=== PATIENT | female | born 1980 | race Caucasian/White ===

== ENCOUNTER 2022-09-12 15:35 | Inpatient (IN) | payer OTHER ==
[2022-09-12 17:43] VITALS: BMI 17.8
[2022-09-12] MEDS ORDERED: POLYETHYLENE GLYCOL (HEALTHYLAX) 3350 17 GM PACKET PO PRN (20:05)
[2022-09-12] MEDS ORDERED: MAG HYDROX/AL HYDROX/SIMETH 30 ML UNIT-DOSE CUP PO PRN (20:05)
[2022-09-12] MEDS ORDERED: guaiFENesin 200 MG/10 ML 10 ML UNIT-DOSE CUPS PO PRN (20:05)
[2022-09-12] MEDS ORDERED: BENZOCAINE/MENTHOL (CHLORASEPTIC ) LOZENGE MM PRN (20:05)
[2022-09-12] MEDS ORDERED: MAGNESIUM HYDROX 2400MG/30ML ORAL SUSPENSION 30 ML CUP PO PRN (20:05)
[2022-09-12] MEDS ORDERED: P-EPHED 60MG/TRIPROLIDI 2.5MG TABLET PO PRN (20:05)
[2022-09-12] MEDS ORDERED: LOPERAMIDE HCL 2 MG CAPSULE PO PRN (20:05)
[2022-09-12] MEDS ORDERED: ACETAMINOPHEN 325 MG TABLET (FP) PO PRN (20:05)
[2022-09-12] MEDS ORDERED: NICOTINE 10 MG CARTRIDGE (INHALER) IH PRN (20:05)
[2022-09-12] MEDS ORDERED: IBUPROFEN 400 MG TABLET (FP) PO PRN (20:05)
[2022-09-12] MEDS ORDERED: hydrOXYzine PAMOATE 25 MG CAPSULE (FP) PO ONE (20:37)
[2022-09-12] MEDS: hydrOXYzine PAMOATE 25 MG CAPSULE (FP) PO PRN (20:38)
[2022-09-12] MEDS: NICOTINE 7 MG/24 HOURS TOPICAL PATCH TD SCH (20:41)
[2022-09-12] MEDS ORDERED: NICOTINE 7 MG/24 HOURS TOPICAL PATCH TD ONE (20:42)
[2022-09-12] MEDS ORDERED: THIAMINE HCL 100 MG TABLET (FP) PO SCH (22:00)
[2022-09-13] MEDS: PRENATAL VITAMINS W/ FOLIC ACID TABLET (FP) PO SCH ×2 (01:49→10:00)
[2022-09-13] MEDS: MELATONIN 5 MG TABLETS PO SCH ×3 (01:49→22:22)
[2022-09-13] MEDS ORDERED: hydrOXYzine PAMOATE 25 MG CAPSULE (FP) PO ONE (06:28)
[2022-09-13] MEDS: hydrOXYzine PAMOATE 25 MG CAPSULE (FP) PO PRN ×2 (07:03→19:45)
[2022-09-13] MEDS: NICOTINE 7 MG/24 HOURS TOPICAL PATCH TD SCH (10:00)
[2022-09-13 11:47] LABS: HEMATOCRIT 39.7 % (32.4-45.2); HEMOGLOBIN 13.5 GM/dL (10.7-15.3); MCH 28.4 pg (25.7-33.7); MCHC 33.9 g/dl (32.0-36.0); MEAN CELL VOLUME 83.9 fl (80-96); MEAN PLT VOLUME 8.1 fl (7.5-11.1); PLATELET COUNT 241 10^3/uL (134-434); RBC 4.73 M/mm3 (3.60-5.2); RDW 13.5 % (11.6-15.6); WHITE BLOOD COUNT 5.5 K/mm3 (4.0-10.0)
[2022-09-13 11:57] LABS: ALBUMIN 3.6 g/dl (3.4-5.0); CALCIUM 9.4 mg/dL (8.5-10.1)
[2022-09-13 11:58] LABS: BLOOD UREA NITROGEN 7.3 mg/dL (7-18)
[2022-09-13 12:00] LABS: CREATININE 0.5 mg/dL (0.55-1.3)
[2022-09-13 12:02] LABS: BILIRUBIN,TOTAL 0.3 mg/dL (0.2-1); TOT PROT 6.6 g/dl (6.4-8.2)
[2022-09-13] MEDS ORDERED: MAG HYDROX/AL HYDROX/SIMETH 30 ML UNIT-DOSE CUP PO PRN (13:16)
[2022-09-13] MEDS ORDERED: BISMUTH SUBSALICYLATE 524 MG/30 ML PO PRN (13:16)
[2022-09-13] MEDS ORDERED: DICYCLOMINE HCL 10 MG CAPSULE PO PRN (13:16)
[2022-09-13] MEDS ORDERED: ACETAMINOPHEN 325 MG TABLET (FP) PO PRN ×2 (13:16)
[2022-09-13] MEDS ORDERED: BENZOCAINE/MENTHOL (CHLORASEPTIC ) LOZENGE MM PRN (13:16)
[2022-09-13] MEDS ORDERED: LOPERAMIDE HCL 2 MG CAPSULE PO PRN (13:16)
[2022-09-13] MEDS ORDERED: ONDANSETRON *ODT* 4 MG TABLET SL PRN (13:16)
[2022-09-13] MEDS ORDERED: NALOXONE HCL (KLOXXADO) 8 MG SPRAY NS PRN (13:16)
[2022-09-13] MEDS ORDERED: NICOTINE 10 MG CARTRIDGE (INHALER) IH PRN (13:16)
[2022-09-13] MEDS ORDERED: POLYETHYLENE GLYCOL (HEALTHYLAX) 3350 17 GM PACKET PO PRN (13:16)
[2022-09-13] MEDS ORDERED: MAGNESIUM HYDROX 2400MG/30ML ORAL SUSPENSION 30 ML CUP PO PRN (13:16)
[2022-09-13 15:38] LABS: SYPHILIS W/ RPR CONF NON-REACTIVE (NONREACTIVE)
[2022-09-13] MEDS: METHOCARBAMOL 500 MG TABLET PO PRN (18:12)
[2022-09-13] MEDS: THIAMINE HCL 100 MG TABLET (FP) PO SCH (22:22)
[2022-09-13] MEDS: IBUPROFEN 400 MG TABLET (FP) PO PRN (22:23)
[2022-09-14] MEDS: IBUPROFEN 600 MG TABLET (FP) PO PRN ×2 (03:49→16:48)
[2022-09-14] MEDS: METHOCARBAMOL 500 MG TABLET PO PRN ×3 (03:49→19:16)
[2022-09-14] MEDS: hydrOXYzine PAMOATE 25 MG CAPSULE (FP) PO PRN (03:49)
[2022-09-14] MEDS: NICOTINE POLACRILEX 2 MG GUM BUC PRN (05:48)
[2022-09-14] MEDS: methaDONE HCL 10 MG TABLET PO SCH (08:51)
[2022-09-14] MEDS: PRENATAL VITAMINS W/ FOLIC ACID TABLET (FP) PO SCH (10:13)
[2022-09-14] MEDS: NICOTINE 7 MG/24 HOURS TOPICAL PATCH TD SCH (10:13)
[2022-09-14 11:47] LABS: EPI CELLS 15 /uL (0-25.1); HYALINE CASTS 4 /uL (0-3.1); PH,URINE 8.5 (5.0-8.0); URINE APPEARANCE CLEAR; URINE BACTERIA 8 /uL (0-1359); URINE BILIRUBIN NEGATIVE (NEGATIVE); URINE COLOR DK YELLOW; URINE GLUCOSE (UA) NEGATIVE (NEGATIVE); URINE KETONE TRACE (NEGATIVE); URINE LEUK ESTERASE TRACE (NEGATIVE); URINE NITRITE NEGATIVE (NEGATIVE); URINE PROTEIN 1+ (NEGATIVE); URINE RBC 34 /uL (0-23.9); URINE WBC 21 /uL (0-25.8)
[2022-09-14] MEDS ORDERED: hydrOXYzine PAMOATE 25 MG CAPSULE (FP) PO ONE (13:30)
[2022-09-14] MEDS: THIAMINE HCL 100 MG TABLET (FP) PO SCH (22:08)
[2022-09-14] MEDS: MELATONIN 5 MG TABLETS PO SCH (22:08)
[2022-09-15] MEDS: METHOCARBAMOL 500 MG TABLET PO PRN ×3 (03:14→16:59)
[2022-09-15] MEDS ORDERED: TRIMETHOBENZAMIDE HCL 200MG/2ML INJ IM ONE (04:00)
[2022-09-15] MEDS: methaDONE HCL 10 MG TABLET PO SCH (05:09)
[2022-09-15] MEDS: IBUPROFEN 600 MG TABLET (FP) PO PRN (05:57)
[2022-09-15] MEDS ORDERED: hydrOXYzine PAMOATE 25 MG CAPSULE (FP) PO ONE ×3 (08:48→21:57)
[2022-09-15] MEDS: PRENATAL VITAMINS W/ FOLIC ACID TABLET (FP) PO SCH (09:44)
[2022-09-15] MEDS: NICOTINE 7 MG/24 HOURS TOPICAL PATCH TD SCH (09:45)
[2022-09-15] MEDS: IBUPROFEN 400 MG TABLET (FP) PO PRN (16:59)
[2022-09-15] MEDS: MELATONIN 5 MG TABLETS PO SCH (23:12)
[2022-09-15] MEDS: THIAMINE HCL 100 MG TABLET (FP) PO SCH (23:12)
[2022-09-16] MEDS: METHOCARBAMOL 500 MG TABLET PO PRN ×2 (03:33→12:50)
[2022-09-16] MEDS: IBUPROFEN 600 MG TABLET (FP) PO PRN (03:33)
[2022-09-16] MEDS ORDERED: hydrOXYzine PAMOATE 25 MG CAPSULE (FP) PO ONE (04:27)
[2022-09-16] MEDS: methaDONE HCL 10 MG TABLET PO SCH (05:17)
[2022-09-16] MEDS ORDERED: hydrOXYzine PAMOATE 25 MG CAPSULE (FP) PO PRN ×2 (09:05→09:10)
[2022-09-16] MEDS: NICOTINE 7 MG/24 HOURS TOPICAL PATCH TD SCH (09:43)
[2022-09-16] MEDS: PRENATAL VITAMINS W/ FOLIC ACID TABLET (FP) PO SCH (09:43)
[2022-09-16] MEDS ORDERED: ESCITALOPRAM OXALATE 10 MG TABLET PO SCH (10:00)
[2022-09-16 12:48] VITALS: BP 104/61; PULSE 78; RESP 14; TEMP 97.5
[2022-09-16] MEDS: NICOTINE POLACRILEX 2 MG GUM BUC PRN (14:29)
[2022-09-16] MEDS ORDERED: SUVOREXANT 10 MG TABLET PO PRN (22:00)
== END 2022-09-16 17:49 | disposition other institution (70) | DRG 773 ==
LOC: YASAS 15:35 → Y3N 09-13 12:28
PROVIDERS: ADMIT Allergy & Immunology; ATTEND Surgery
PROC: HZ2ZZZZ Detoxification Services for Substance Abuse Treatment (ICD-10-PCS; principal; 2022-09-13)
DX: F11.23 Opioid dependence with withdrawal (principal); F14.20 Cocaine dependence, uncomplicated; F17.210 Nicotine dependence, cigarettes, uncomplicated; F19.24 Other psychoactive substance dependence with psychoactive substance-induced mood disorder; F43.22 Adjustment disorder with anxiety; F32.A Depression, unspecified; F41.9 Anxiety disorder, unspecified; Z28.310 Unvaccinated for COVID-19; Z56.0 Unemployment, unspecified; Z59.00 Homelessness unspecified
CPT/HCPCS: 36415; 80053; 81003; 85027; 86780; 86803; 93005; 93010; C9803-CS; U0003; U0005

== ENCOUNTER 2022-09-16 18:15 | Inpatient (IN) | payer OTHER ==
[2022-09-16] MEDS ORDERED: BENZOCAINE/MENTHOL (CHLORASEPTIC ) LOZENGE MM PRN (20:59)
[2022-09-16] MEDS ORDERED: ACETAMINOPHEN 325 MG TABLET (FP) PO PRN (20:59)
[2022-09-16] MEDS ORDERED: MAG HYDROX/AL HYDROX/SIMETH 30 ML UNIT-DOSE CUP PO PRN (20:59)
[2022-09-16] MEDS ORDERED: guaiFENesin 200 MG/10 ML 10 ML UNIT-DOSE CUPS PO PRN (20:59)
[2022-09-16] MEDS ORDERED: LOPERAMIDE HCL 2 MG CAPSULE PO PRN (20:59)
[2022-09-16] MEDS: THIAMINE HCL 100 MG TABLET (FP) PO SCH (21:27)
[2022-09-16] MEDS ORDERED: MELATONIN 5 MG TABLETS PO SCH (22:00)
[2022-09-17] MEDS ORDERED: hydrOXYzine PAMOATE 25 MG CAPSULE (FP) PO PRN ×2 (01:23→09:18)
[2022-09-17] MEDS: methaDONE HCL 10 MG TABLET PO SCH (06:36)
[2022-09-17] MEDS: IBUPROFEN 400 MG TABLET (FP) PO PRN (06:43)
[2022-09-17] MEDS: PRENATAL VITAMINS W/ FOLIC ACID TABLET (FP) PO SCH (10:19)
[2022-09-17] MEDS: hydrOXYzine PAMOATE 25 MG CAPSULE (FP) PO SCH ×2 (10:19→17:38)
[2022-09-17] MEDS: NICOTINE 14 MG/24 HOURS TOPICAL PATCH TD SCH (10:20)
[2022-09-17] MEDS: ESCITALOPRAM OXALATE 10 MG TABLET PO SCH (10:21)
[2022-09-17] MEDS: NICOTINE 10 MG CARTRIDGE (INHALER) IH PRN (10:29)
[2022-09-17] MEDS: METHOCARBAMOL 500 MG TABLET PO PRN ×2 (10:29→17:42)
[2022-09-17] MEDS: THIAMINE HCL 100 MG TABLET (FP) PO SCH (22:03)
[2022-09-17] MEDS: SUVOREXANT 10 MG TABLET PO PRN (22:04)
[2022-09-18] MEDS: hydrOXYzine PAMOATE 25 MG CAPSULE (FP) PO SCH (01:52)
[2022-09-18] MEDS: methaDONE HCL 10 MG TABLET PO SCH (06:15)
[2022-09-18] MEDS: PRENATAL VITAMINS W/ FOLIC ACID TABLET (FP) PO SCH (10:41)
[2022-09-18] MEDS: ESCITALOPRAM OXALATE 10 MG TABLET PO SCH (10:42)
[2022-09-18] MEDS: hydrOXYzine PAMOATE 25 MG CAPSULE (FP) PO PRN ×3 (10:42→21:46)
[2022-09-18] MEDS: NICOTINE 14 MG/24 HOURS TOPICAL PATCH TD SCH (10:42)
[2022-09-18] MEDS: METHOCARBAMOL 500 MG TABLET PO PRN ×2 (10:43→18:14)
[2022-09-18] MEDS: NICOTINE 10 MG CARTRIDGE (INHALER) IH PRN (10:45)
[2022-09-18] MEDS: THIAMINE HCL 100 MG TABLET (FP) PO SCH (21:46)
[2022-09-18] MEDS: SUVOREXANT 10 MG TABLET PO PRN (21:48)
[2022-09-19] MEDS: METHOCARBAMOL 500 MG TABLET PO PRN ×3 (06:51→21:33)
[2022-09-19] MEDS: methaDONE HCL 10 MG TABLET PO SCH (06:51)
[2022-09-19] MEDS: ESCITALOPRAM OXALATE 10 MG TABLET PO SCH (10:20)
[2022-09-19] MEDS: PRENATAL VITAMINS W/ FOLIC ACID TABLET (FP) PO SCH (10:21)
[2022-09-19] MEDS: NICOTINE 14 MG/24 HOURS TOPICAL PATCH TD SCH (10:21)
[2022-09-19] MEDS: hydrOXYzine PAMOATE 25 MG CAPSULE (FP) PO PRN ×3 (10:21→21:34)
[2022-09-19] MEDS: NICOTINE 10 MG CARTRIDGE (INHALER) IH PRN ×2 (10:22→16:33)
[2022-09-19] MEDS ORDERED: TUBERCULIN PPD 5 TU/0.1ML VIAL ID ONE (11:05)
[2022-09-19] MEDS: SODIUM CHLORIDE NASAL SPRAY 44 ML BOTTLE NS SCH ×2 (14:24→21:33)
[2022-09-19] MEDS: THIAMINE HCL 100 MG TABLET (FP) PO SCH (21:32)
[2022-09-19] MEDS: SUVOREXANT 10 MG TABLET PO PRN (21:33)
[2022-09-20] MEDS: SODIUM CHLORIDE NASAL SPRAY 44 ML BOTTLE NS SCH ×3 (06:57→21:48)
[2022-09-20] MEDS: methaDONE HCL 10 MG TABLET PO SCH (06:57)
[2022-09-20] MEDS: hydrOXYzine PAMOATE 25 MG CAPSULE (FP) PO PRN ×3 (06:59→21:37)
[2022-09-20] MEDS: METHOCARBAMOL 500 MG TABLET PO PRN ×2 (07:00→21:37)
[2022-09-20] MEDS: ESCITALOPRAM OXALATE 10 MG TABLET PO SCH (10:20)
[2022-09-20] MEDS: NICOTINE 14 MG/24 HOURS TOPICAL PATCH TD SCH (10:20)
[2022-09-20] MEDS: PRENATAL VITAMINS W/ FOLIC ACID TABLET (FP) PO SCH (10:21)
[2022-09-20] MEDS: IBUPROFEN 400 MG TABLET (FP) PO PRN (16:35)
[2022-09-20] MEDS: NICOTINE 10 MG CARTRIDGE (INHALER) IH PRN (19:32)
[2022-09-20] MEDS: NICOTINE POLACRILEX 2 MG GUM BUC PRN (20:10)
[2022-09-20] MEDS: THIAMINE HCL 100 MG TABLET (FP) PO SCH (21:37)
[2022-09-21] MEDS: P-EPHED 60MG/TRIPROLIDI 2.5MG TABLET PO PRN ×2 (06:45→21:46)
[2022-09-21] MEDS: methaDONE HCL 10 MG TABLET PO SCH (06:45)
[2022-09-21] MEDS: hydrOXYzine PAMOATE 25 MG CAPSULE (FP) PO PRN ×3 (06:45→19:40)
[2022-09-21] MEDS: SODIUM CHLORIDE NASAL SPRAY 44 ML BOTTLE NS SCH ×3 (07:23→21:43)
[2022-09-21] MEDS: ESCITALOPRAM OXALATE 10 MG TABLET PO SCH (10:38)
[2022-09-21] MEDS: PRENATAL VITAMINS W/ FOLIC ACID TABLET (FP) PO SCH (10:39)
[2022-09-21] MEDS: METHOCARBAMOL 500 MG TABLET PO PRN ×2 (10:41→21:44)
[2022-09-21] MEDS: NICOTINE 14 MG/24 HOURS TOPICAL PATCH TD SCH (10:41)
[2022-09-21] MEDS: NICOTINE 10 MG CARTRIDGE (INHALER) IH PRN ×2 (10:46→20:04)
[2022-09-21] MEDS: THIAMINE HCL 100 MG TABLET (FP) PO SCH (21:44)
[2022-09-22] MEDS: methaDONE HCL 10 MG TABLET PO SCH (06:35)
[2022-09-22] MEDS: SODIUM CHLORIDE NASAL SPRAY 44 ML BOTTLE NS SCH ×3 (06:35→21:41)
[2022-09-22] MEDS: hydrOXYzine PAMOATE 25 MG CAPSULE (FP) PO PRN ×3 (06:36→21:36)
[2022-09-22] MEDS: NICOTINE 10 MG CARTRIDGE (INHALER) IH PRN ×4 (06:38→21:37)
[2022-09-22] MEDS: ESCITALOPRAM OXALATE 10 MG TABLET PO SCH (10:15)
[2022-09-22] MEDS: METHOCARBAMOL 500 MG TABLET PO PRN ×2 (10:16→21:36)
[2022-09-22] MEDS: PRENATAL VITAMINS W/ FOLIC ACID TABLET (FP) PO SCH (10:16)
[2022-09-22] MEDS: NICOTINE 14 MG/24 HOURS TOPICAL PATCH TD SCH (10:16)
[2022-09-22] MEDS: THIAMINE HCL 100 MG TABLET (FP) PO SCH (21:36)
[2022-09-22] MEDS ORDERED: SUVOREXANT 10 MG TABLET PO PRN (22:00)
[2022-09-23] MEDS: SODIUM CHLORIDE NASAL SPRAY 44 ML BOTTLE NS SCH ×3 (07:09→21:37)
[2022-09-23] MEDS: methaDONE HCL 10 MG TABLET PO SCH (07:09)
[2022-09-23] MEDS: NICOTINE 10 MG CARTRIDGE (INHALER) IH PRN ×4 (09:03→21:36)
[2022-09-23] MEDS: ESCITALOPRAM OXALATE 10 MG TABLET PO SCH (10:14)
[2022-09-23] MEDS: NICOTINE 14 MG/24 HOURS TOPICAL PATCH TD SCH (10:15)
[2022-09-23] MEDS: PRENATAL VITAMINS W/ FOLIC ACID TABLET (FP) PO SCH (10:15)
[2022-09-23] MEDS: hydrOXYzine PAMOATE 25 MG CAPSULE (FP) PO PRN ×2 (10:16→18:22)
[2022-09-23] MEDS: METHOCARBAMOL 500 MG TABLET PO PRN (12:11)
[2022-09-23] MEDS: THIAMINE HCL 100 MG TABLET (FP) PO SCH (21:35)
[2022-09-23] MEDS: IBUPROFEN 400 MG TABLET (FP) PO PRN (21:47)
[2022-09-24] MEDS: NICOTINE 10 MG CARTRIDGE (INHALER) IH PRN ×5 (06:44→21:27)
[2022-09-24] MEDS: hydrOXYzine PAMOATE 25 MG CAPSULE (FP) PO PRN ×2 (06:45→17:18)
[2022-09-24] MEDS: methaDONE HCL 10 MG TABLET PO SCH (06:45)
[2022-09-24] MEDS: SODIUM CHLORIDE NASAL SPRAY 44 ML BOTTLE NS SCH ×2 (06:47→14:13)
[2022-09-24] MEDS: ESCITALOPRAM OXALATE 10 MG TABLET PO SCH (09:50)
[2022-09-24] MEDS: NICOTINE 14 MG/24 HOURS TOPICAL PATCH TD SCH (09:50)
[2022-09-24] MEDS: PRENATAL VITAMINS W/ FOLIC ACID TABLET (FP) PO SCH (09:50)
[2022-09-24] MEDS: METHOCARBAMOL 500 MG TABLET PO PRN ×2 (09:51→18:16)
[2022-09-25] MEDS: THIAMINE HCL 100 MG TABLET (FP) PO SCH ×2 (00:02→21:28)
[2022-09-25] MEDS: SODIUM CHLORIDE NASAL SPRAY 44 ML BOTTLE NS SCH ×2 (00:02→07:04)
[2022-09-25] MEDS: methaDONE HCL 10 MG TABLET PO SCH (07:04)
[2022-09-25] MEDS: NICOTINE 10 MG CARTRIDGE (INHALER) IH PRN ×2 (07:04→14:36)
[2022-09-25] MEDS: hydrOXYzine PAMOATE 25 MG CAPSULE (FP) PO PRN ×3 (07:04→21:28)
[2022-09-25] MEDS: ESCITALOPRAM OXALATE 10 MG TABLET PO SCH (10:09)
[2022-09-25] MEDS: PRENATAL VITAMINS W/ FOLIC ACID TABLET (FP) PO SCH (10:09)
[2022-09-25] MEDS: NICOTINE 14 MG/24 HOURS TOPICAL PATCH TD SCH (10:10)
[2022-09-25] MEDS: METHOCARBAMOL 500 MG TABLET PO PRN ×2 (10:11→21:28)
[2022-09-25] MEDS: MAGNESIUM HYDROX 2400MG/30ML ORAL SUSPENSION 30 ML CUP PO PRN (18:05)
[2022-09-25] MEDS: IBUPROFEN 400 MG TABLET (FP) PO PRN (20:02)
[2022-09-25] MEDS ORDERED: SUVOREXANT 10 MG TABLET PO PRN (22:00)
[2022-09-26] MEDS: methaDONE HCL 10 MG TABLET PO SCH (06:04)
[2022-09-26] MEDS: hydrOXYzine PAMOATE 25 MG CAPSULE (FP) PO PRN ×3 (06:05→21:33)
[2022-09-26] MEDS: P-EPHED 60MG/TRIPROLIDI 2.5MG TABLET PO PRN (06:06)
[2022-09-26] MEDS: PRENATAL VITAMINS W/ FOLIC ACID TABLET (FP) PO SCH (10:18)
[2022-09-26] MEDS: NICOTINE 14 MG/24 HOURS TOPICAL PATCH TD SCH (10:18)
[2022-09-26] MEDS: METHOCARBAMOL 500 MG TABLET PO PRN ×2 (10:18→21:33)
[2022-09-26] MEDS: NICOTINE 10 MG CARTRIDGE (INHALER) IH PRN ×2 (10:19→20:34)
[2022-09-26] MEDS: ESCITALOPRAM OXALATE 10 MG TABLET PO SCH (10:20)
[2022-09-26] MEDS: IBUPROFEN 400 MG TABLET (FP) PO PRN (13:38)
[2022-09-26] MEDS: MAGNESIUM HYDROX 2400MG/30ML ORAL SUSPENSION 30 ML CUP PO PRN (18:10)
[2022-09-26] MEDS: THIAMINE HCL 100 MG TABLET (FP) PO SCH (21:32)
[2022-09-27] MEDS: hydrOXYzine PAMOATE 25 MG CAPSULE (FP) PO PRN ×3 (06:33→21:20)
[2022-09-27] MEDS: methaDONE HCL 10 MG TABLET PO SCH (06:33)
[2022-09-27] MEDS: NICOTINE 10 MG CARTRIDGE (INHALER) IH PRN ×4 (06:36→20:48)
[2022-09-27] MEDS: ESCITALOPRAM OXALATE 10 MG TABLET PO SCH (09:43)
[2022-09-27] MEDS: PRENATAL VITAMINS W/ FOLIC ACID TABLET (FP) PO SCH (09:44)
[2022-09-27] MEDS: NICOTINE 14 MG/24 HOURS TOPICAL PATCH TD SCH (09:44)
[2022-09-27] MEDS: METHOCARBAMOL 500 MG TABLET PO PRN ×2 (09:45→16:31)
[2022-09-27] MEDS: IBUPROFEN 400 MG TABLET (FP) PO PRN ×2 (14:30→22:15)
[2022-09-27] MEDS: POLYETHYLENE GLYCOL (HEALTHYLAX) 3350 17 GM PACKET PO PRN (18:30)
[2022-09-27] MEDS: THIAMINE HCL 100 MG TABLET (FP) PO SCH (21:20)
[2022-09-28] MEDS: methaDONE HCL 10 MG TABLET PO SCH (06:40)
[2022-09-28] MEDS: METHOCARBAMOL 500 MG TABLET PO PRN ×2 (06:40→17:47)
[2022-09-28] MEDS: P-EPHED 60MG/TRIPROLIDI 2.5MG TABLET PO PRN (07:22)
[2022-09-28] MEDS: NICOTINE 14 MG/24 HOURS TOPICAL PATCH TD SCH (09:54)
[2022-09-28] MEDS: hydrOXYzine PAMOATE 25 MG CAPSULE (FP) PO PRN ×2 (09:54→17:47)
[2022-09-28] MEDS: ESCITALOPRAM OXALATE 10 MG TABLET PO SCH (09:54)
[2022-09-28] MEDS: PRENATAL VITAMINS W/ FOLIC ACID TABLET (FP) PO SCH (09:54)
[2022-09-28] MEDS: NICOTINE 10 MG CARTRIDGE (INHALER) IH PRN ×3 (09:55→19:46)
[2022-09-28] MEDS: IBUPROFEN 400 MG TABLET (FP) PO PRN (19:44)
[2022-09-28] MEDS ORDERED: SUVOREXANT 10 MG TABLET PO PRN (22:00)
[2022-09-28] MEDS: THIAMINE HCL 100 MG TABLET (FP) PO SCH (23:18)
[2022-09-29] MEDS: methaDONE HCL 10 MG TABLET PO SCH (06:31)
[2022-09-29] MEDS: PRENATAL VITAMINS W/ FOLIC ACID TABLET (FP) PO SCH (09:44)
[2022-09-29] MEDS: NICOTINE 14 MG/24 HOURS TOPICAL PATCH TD SCH (09:44)
[2022-09-29] MEDS: NICOTINE 10 MG CARTRIDGE (INHALER) IH PRN ×3 (09:45→20:04)
[2022-09-29] MEDS: METHOCARBAMOL 500 MG TABLET PO PRN ×2 (09:45→18:18)
[2022-09-29] MEDS: hydrOXYzine PAMOATE 25 MG CAPSULE (FP) PO PRN ×2 (14:18→21:40)
[2022-09-29] MEDS: IBUPROFEN 400 MG TABLET (FP) PO PRN (16:10)
[2022-09-29] MEDS: THIAMINE HCL 100 MG TABLET (FP) PO SCH (21:30)
[2022-09-29] MEDS: POLYETHYLENE GLYCOL (HEALTHYLAX) 3350 17 GM PACKET PO PRN (21:37)
[2022-09-30] MEDS: methaDONE HCL 10 MG TABLET PO SCH (06:16)
[2022-09-30] MEDS: hydrOXYzine PAMOATE 25 MG CAPSULE (FP) PO PRN ×3 (06:16→21:18)
[2022-09-30] MEDS: NICOTINE 10 MG CARTRIDGE (INHALER) IH PRN ×4 (06:17→21:28)
[2022-09-30] MEDS: PRENATAL VITAMINS W/ FOLIC ACID TABLET (FP) PO SCH (09:46)
[2022-09-30] MEDS: NICOTINE 14 MG/24 HOURS TOPICAL PATCH TD SCH (09:47)
[2022-09-30] MEDS: METHOCARBAMOL 500 MG TABLET PO PRN ×2 (09:48→16:37)
[2022-09-30] MEDS: BENZOCAINE 20 % GEL TUBE MM PRN (17:57)
[2022-09-30] MEDS: IBUPROFEN 400 MG TABLET (FP) PO PRN (20:13)
[2022-09-30] MEDS: THIAMINE HCL 100 MG TABLET (FP) PO SCH (21:18)
[2022-09-30] MEDS: POLYETHYLENE GLYCOL (HEALTHYLAX) 3350 17 GM PACKET PO PRN (21:21)
[2022-10-01] MEDS: hydrOXYzine PAMOATE 25 MG CAPSULE (FP) PO PRN ×3 (06:33→21:27)
[2022-10-01] MEDS: methaDONE HCL 10 MG TABLET PO SCH (06:33)
[2022-10-01] MEDS: PRENATAL VITAMINS W/ FOLIC ACID TABLET (FP) PO SCH (09:41)
[2022-10-01] MEDS: METHOCARBAMOL 500 MG TABLET PO PRN ×2 (09:42→18:58)
[2022-10-01] MEDS: NICOTINE 14 MG/24 HOURS TOPICAL PATCH TD SCH (09:42)
[2022-10-01] MEDS: NICOTINE 10 MG CARTRIDGE (INHALER) IH PRN ×3 (12:06→21:33)
[2022-10-01] MEDS: BENZOCAINE 20 % GEL TUBE MM PRN (21:26)
[2022-10-01] MEDS: THIAMINE HCL 100 MG TABLET (FP) PO SCH (21:27)
[2022-10-01] MEDS: IBUPROFEN 400 MG TABLET (FP) PO PRN (21:31)
[2022-10-02] MEDS: methaDONE HCL 10 MG TABLET PO SCH (06:37)
[2022-10-02] MEDS: hydrOXYzine PAMOATE 25 MG CAPSULE (FP) PO PRN ×2 (06:37→12:47)
[2022-10-02] MEDS: P-EPHED 60MG/TRIPROLIDI 2.5MG TABLET PO PRN (06:38)
[2022-10-02] MEDS: NICOTINE 10 MG CARTRIDGE (INHALER) IH PRN ×5 (08:48→22:16)
[2022-10-02] MEDS: NICOTINE 14 MG/24 HOURS TOPICAL PATCH TD SCH (09:42)
[2022-10-02] MEDS: PRENATAL VITAMINS W/ FOLIC ACID TABLET (FP) PO SCH (09:42)
[2022-10-02] MEDS: METHOCARBAMOL 500 MG TABLET PO PRN ×2 (09:44→22:17)
[2022-10-02] MEDS: BENZOCAINE 20 % GEL TUBE MM PRN (16:19)
[2022-10-02] MEDS: IBUPROFEN 400 MG TABLET (FP) PO PRN (16:57)
[2022-10-02] MEDS: THIAMINE HCL 100 MG TABLET (FP) PO SCH (22:19)
[2022-10-03] MEDS: IBUPROFEN 400 MG TABLET (FP) PO PRN ×2 (01:00→12:11)
[2022-10-03] MEDS: BENZOCAINE 20 % GEL TUBE MM PRN ×2 (01:01→22:35)
[2022-10-03] MEDS: NICOTINE 10 MG CARTRIDGE (INHALER) IH PRN ×6 (07:02→20:14)
[2022-10-03] MEDS: methaDONE HCL 10 MG TABLET PO SCH (07:03)
[2022-10-03] MEDS: PRENATAL VITAMINS W/ FOLIC ACID TABLET (FP) PO SCH (09:05)
[2022-10-03] MEDS: NICOTINE 14 MG/24 HOURS TOPICAL PATCH TD SCH (09:06)
[2022-10-03] MEDS: METHOCARBAMOL 500 MG TABLET PO PRN ×2 (10:07→21:24)
[2022-10-03] MEDS: hydrOXYzine PAMOATE 25 MG CAPSULE (FP) PO PRN ×2 (14:05→21:24)
[2022-10-03] MEDS: THIAMINE HCL 100 MG TABLET (FP) PO SCH (21:24)
[2022-10-04] MEDS: NICOTINE 10 MG CARTRIDGE (INHALER) IH PRN ×4 (06:01→17:41)
[2022-10-04] MEDS: methaDONE HCL 10 MG TABLET PO SCH (06:02)
[2022-10-04] MEDS: POLYETHYLENE GLYCOL (HEALTHYLAX) 3350 17 GM PACKET PO PRN (06:02)
[2022-10-04] MEDS: hydrOXYzine PAMOATE 25 MG CAPSULE (FP) PO PRN ×3 (06:02→21:17)
[2022-10-04] MEDS: PRENATAL VITAMINS W/ FOLIC ACID TABLET (FP) PO SCH (09:35)
[2022-10-04] MEDS: NICOTINE 14 MG/24 HOURS TOPICAL PATCH TD SCH (09:37)
[2022-10-04] MEDS: METHOCARBAMOL 500 MG TABLET PO PRN ×2 (09:38→18:15)
[2022-10-04] MEDS: AMOXICILLIN 500 MG CAPSULE (FP) PO SCH ×2 (14:00→21:17)
[2022-10-04] MEDS: IBUPROFEN 400 MG TABLET (FP) PO PRN (15:08)
[2022-10-04] MEDS: THIAMINE HCL 100 MG TABLET (FP) PO SCH (21:17)
[2022-10-05] MEDS: methaDONE HCL 40 MG DISPERSABLE TABLET PO SCH (06:29)
[2022-10-05] MEDS: NICOTINE 10 MG CARTRIDGE (INHALER) IH PRN ×5 (06:55→21:31)
[2022-10-05] MEDS: AMOXICILLIN 500 MG CAPSULE (FP) PO SCH ×2 (10:00→21:26)
[2022-10-05] MEDS: PRENATAL VITAMINS W/ FOLIC ACID TABLET (FP) PO SCH (10:00)
[2022-10-05] MEDS: POLYETHYLENE GLYCOL (HEALTHYLAX) 3350 17 GM PACKET PO PRN (10:01)
[2022-10-05] MEDS: METHOCARBAMOL 500 MG TABLET PO PRN ×2 (10:01→21:27)
[2022-10-05] MEDS: hydrOXYzine PAMOATE 25 MG CAPSULE (FP) PO PRN ×2 (10:01→21:26)
[2022-10-05] MEDS: NICOTINE 14 MG/24 HOURS TOPICAL PATCH TD SCH (10:04)
[2022-10-05] MEDS: IBUPROFEN 400 MG TABLET (FP) PO PRN ×2 (17:21→23:47)
[2022-10-05] MEDS: THIAMINE HCL 100 MG TABLET (FP) PO SCH (21:27)
[2022-10-06] MEDS: methaDONE HCL 40 MG DISPERSABLE TABLET PO SCH (06:36)
[2022-10-06] MEDS: hydrOXYzine PAMOATE 25 MG CAPSULE (FP) PO PRN ×3 (06:37→21:33)
[2022-10-06] MEDS: PRENATAL VITAMINS W/ FOLIC ACID TABLET (FP) PO SCH (10:02)
[2022-10-06] MEDS: AMOXICILLIN 500 MG CAPSULE (FP) PO SCH ×2 (10:02→21:32)
[2022-10-06] MEDS: METHOCARBAMOL 500 MG TABLET PO PRN ×2 (10:03→21:32)
[2022-10-06] MEDS: NICOTINE 10 MG CARTRIDGE (INHALER) IH PRN ×5 (10:05→21:33)
[2022-10-06] MEDS: NICOTINE 14 MG/24 HOURS TOPICAL PATCH TD SCH (10:28)
[2022-10-06] MEDS: THIAMINE HCL 100 MG TABLET (FP) PO SCH (21:33)
[2022-10-07] MEDS: IBUPROFEN 400 MG TABLET (FP) PO PRN (01:34)
[2022-10-07] MEDS: hydrOXYzine PAMOATE 25 MG CAPSULE (FP) PO PRN ×3 (06:36→21:41)
[2022-10-07] MEDS: methaDONE HCL 40 MG DISPERSABLE TABLET PO SCH (06:36)
[2022-10-07] MEDS: NICOTINE 10 MG CARTRIDGE (INHALER) IH PRN ×5 (08:58→22:30)
[2022-10-07] MEDS: PRENATAL VITAMINS W/ FOLIC ACID TABLET (FP) PO SCH (09:42)
[2022-10-07] MEDS: AMOXICILLIN 500 MG CAPSULE (FP) PO SCH ×2 (09:44→21:41)
[2022-10-07] MEDS: METHOCARBAMOL 500 MG TABLET PO PRN (09:44)
[2022-10-07] MEDS: NICOTINE 14 MG/24 HOURS TOPICAL PATCH TD SCH (09:45)
[2022-10-07] MEDS ORDERED: COLLOIDAL OATMEAL 1 BAR EACH TP PRN (12:50)
[2022-10-07] MEDS: PETROLATUM, WHITE 30 GM TUBE TP SCH ×2 (13:35→21:54)
[2022-10-07] MEDS: THIAMINE HCL 100 MG TABLET (FP) PO SCH (21:41)
[2022-10-08] MEDS: methaDONE HCL 40 MG DISPERSABLE TABLET PO SCH (06:17)
[2022-10-08] MEDS: hydrOXYzine PAMOATE 25 MG CAPSULE (FP) PO PRN ×3 (06:18→21:36)
[2022-10-08] MEDS: NICOTINE 14 MG/24 HOURS TOPICAL PATCH TD SCH (09:53)
[2022-10-08] MEDS: PRENATAL VITAMINS W/ FOLIC ACID TABLET (FP) PO SCH (09:53)
[2022-10-08] MEDS: AMOXICILLIN 500 MG CAPSULE (FP) PO SCH ×2 (09:53→21:37)
[2022-10-08] MEDS: NICOTINE 10 MG CARTRIDGE (INHALER) IH PRN ×5 (09:54→19:55)
[2022-10-08] MEDS: METHOCARBAMOL 500 MG TABLET PO PRN (09:54)
[2022-10-08] MEDS: PETROLATUM, WHITE 30 GM TUBE TP SCH ×2 (10:00→21:37)
[2022-10-08] MEDS: POLYETHYLENE GLYCOL (HEALTHYLAX) 3350 17 GM PACKET PO PRN (14:29)
[2022-10-08] MEDS: IBUPROFEN 400 MG TABLET (FP) PO PRN (18:48)
[2022-10-08] MEDS: THIAMINE HCL 100 MG TABLET (FP) PO SCH (21:36)
[2022-10-09] MEDS: methaDONE HCL 40 MG DISPERSABLE TABLET PO SCH (06:45)
[2022-10-09] MEDS: hydrOXYzine PAMOATE 25 MG CAPSULE (FP) PO PRN ×2 (06:45→19:42)
[2022-10-09] MEDS: NICOTINE 10 MG CARTRIDGE (INHALER) IH PRN ×7 (07:13→22:38)
[2022-10-09] MEDS: AMOXICILLIN 500 MG CAPSULE (FP) PO SCH ×2 (09:52→21:33)
[2022-10-09] MEDS: PRENATAL VITAMINS W/ FOLIC ACID TABLET (FP) PO SCH (09:52)
[2022-10-09] MEDS: NICOTINE 14 MG/24 HOURS TOPICAL PATCH TD SCH (09:52)
[2022-10-09] MEDS: METHOCARBAMOL 500 MG TABLET PO PRN (09:52)
[2022-10-09] MEDS: PETROLATUM, WHITE 30 GM TUBE TP SCH ×2 (09:53→21:33)
[2022-10-09] MEDS: POLYETHYLENE GLYCOL (HEALTHYLAX) 3350 17 GM PACKET PO PRN (14:34)
[2022-10-09] MEDS: NICOTINE POLACRILEX 2 MG GUM BUC PRN (14:59)
[2022-10-09] MEDS: THIAMINE HCL 100 MG TABLET (FP) PO SCH (21:33)
[2022-10-09] MEDS: IBUPROFEN 400 MG TABLET (FP) PO PRN (23:53)
[2022-10-10] MEDS: hydrOXYzine PAMOATE 25 MG CAPSULE (FP) PO PRN ×2 (06:56→15:58)
[2022-10-10] MEDS: methaDONE HCL 40 MG DISPERSABLE TABLET PO SCH (06:56)
[2022-10-10] MEDS: NICOTINE 10 MG CARTRIDGE (INHALER) IH PRN ×6 (07:19→22:12)
[2022-10-10] MEDS: PRENATAL VITAMINS W/ FOLIC ACID TABLET (FP) PO SCH (09:54)
[2022-10-10] MEDS: AMOXICILLIN 500 MG CAPSULE (FP) PO SCH ×2 (09:56→21:10)
[2022-10-10] MEDS: NICOTINE 14 MG/24 HOURS TOPICAL PATCH TD SCH (09:56)
[2022-10-10] MEDS: METHOCARBAMOL 500 MG TABLET PO PRN ×2 (09:56→17:52)
[2022-10-10] MEDS: PETROLATUM, WHITE 30 GM TUBE TP SCH (09:56)
[2022-10-10] MEDS: THIAMINE HCL 100 MG TABLET (FP) PO SCH (21:10)
[2022-10-11] MEDS: PETROLATUM, WHITE 30 GM TUBE TP SCH ×3 (00:12→22:38)
[2022-10-11] MEDS: methaDONE HCL 40 MG DISPERSABLE TABLET PO SCH (06:41)
[2022-10-11] MEDS: NICOTINE 10 MG CARTRIDGE (INHALER) IH PRN ×6 (06:43→22:10)
[2022-10-11] MEDS: hydrOXYzine PAMOATE 25 MG CAPSULE (FP) PO PRN ×2 (07:14→13:34)
[2022-10-11 07:24] VITALS: TEMP 97.7
[2022-10-11] MEDS: NICOTINE 14 MG/24 HOURS TOPICAL PATCH TD SCH (09:57)
[2022-10-11] MEDS: PRENATAL VITAMINS W/ FOLIC ACID TABLET (FP) PO SCH (09:57)
[2022-10-11] MEDS: METHOCARBAMOL 500 MG TABLET PO PRN ×2 (09:59→22:10)
[2022-10-11] MEDS: AMOXICILLIN 500 MG CAPSULE (FP) PO SCH ×2 (09:59→22:09)
[2022-10-11] MEDS: POLYETHYLENE GLYCOL (HEALTHYLAX) 3350 17 GM PACKET PO PRN (15:41)
[2022-10-11] MEDS: hydrOXYzine PAMOATE 50 MG CAPSULE (FP) PO PRN (18:35)
[2022-10-11] MEDS: THIAMINE HCL 100 MG TABLET (FP) PO SCH (22:09)
[2022-10-12] MEDS: hydrOXYzine PAMOATE 50 MG CAPSULE (FP) PO PRN ×3 (02:02→14:19)
[2022-10-12] MEDS: METHOCARBAMOL 500 MG TABLET PO PRN ×2 (07:08→14:18)
[2022-10-12] MEDS: IBUPROFEN 400 MG TABLET (FP) PO PRN (07:08)
[2022-10-12] MEDS: NICOTINE 10 MG CARTRIDGE (INHALER) IH PRN ×4 (07:10→14:33)
[2022-10-12 08:30] VITALS: BP 106/61; PULSE 70; RESP 18
[2022-10-12] MEDS: AMOXICILLIN 500 MG CAPSULE (FP) PO SCH (09:29)
[2022-10-12] MEDS: PRENATAL VITAMINS W/ FOLIC ACID TABLET (FP) PO SCH (09:29)
[2022-10-12] MEDS: PETROLATUM, WHITE 30 GM TUBE TP SCH (09:30)
[2022-10-12] MEDS: NICOTINE 14 MG/24 HOURS TOPICAL PATCH TD SCH (09:31)
[2022-10-12] MEDS ORDERED: methaDONE HCL 40 MG DISPERSABLE TABLET PO SCH (09:45)
== END 2022-10-12 16:45 | disposition home or self-care (01) | DRG 772 ==
LOC: YASAS 18:15 → Y5N 18:16
PROVIDERS: ADMIT Allergy & Immunology; ATTEND Psychiatry & Neurology Pain Medicine
PROC: HZ42ZZZ Group Counseling for Substance Abuse Treatment, Cognitive-Behavioral (ICD-10-PCS; principal; 2022-09-16)
DX: F11.20 Opioid dependence, uncomplicated (principal); F14.20 Cocaine dependence, uncomplicated; F12.20 Cannabis dependence, uncomplicated; F17.210 Nicotine dependence, cigarettes, uncomplicated; F19.24 Other psychoactive substance dependence with psychoactive substance-induced mood disorder; F43.22 Adjustment disorder with anxiety; F32.A Depression, unspecified; F41.9 Anxiety disorder, unspecified; K08.89 Other specified disorders of teeth and supporting structures
CPT/HCPCS: C9803-CS; U0003; U0005

== ENCOUNTER 2023-03-31 09:23 | Inpatient (IN) | payer OTHER ==
[2023-03-31 10:00] VITALS: BMI 22.6
[2023-03-31] MEDS ORDERED: NALOXONE HCL 0.4 MG/ML VIAL IM PRN (13:41)
[2023-03-31] MEDS ORDERED: ACETAMINOPHEN 325 MG TABLET (FP) PO PRN (13:41)
[2023-03-31] MEDS ORDERED: BENZOCAINE/MENTHOL (CHLORASEPTIC ) LOZENGE MM PRN (13:41)
[2023-03-31] MEDS ORDERED: BENZONATATE 200 MG CAPSULE PO PRN (13:41)
[2023-03-31] MEDS ORDERED: guaiFENesin 600 MG TABLET.ER (FP) PO PRN (13:41)
[2023-03-31] MEDS ORDERED: P-EPHED 60MG/TRIPROLIDI 2.5MG TABLET PO PRN (13:41)
[2023-03-31] MEDS ORDERED: AMMONIUM LACTATE 12% LOTION 225 GM BOTTLE TP PRN (13:41)
[2023-03-31] MEDS ORDERED: IBUPROFEN 400 MG TABLET (FP) PO PRN (13:41)
[2023-03-31] MEDS ORDERED: MAGNESIUM HYDROX 2400MG/30ML ORAL SUSPENSION 30 ML CUP PO PRN (13:41)
[2023-03-31] MEDS ORDERED: hydrOXYzine PAMOATE 25 MG CAPSULE (FP) PO PRN (13:41)
[2023-03-31] MEDS ORDERED: IBUPROFEN 600 MG TABLET (FP) PO PRN (13:41)
[2023-03-31] MEDS ORDERED: NALOXONE HCL (KLOXXADO) 8 MG SPRAY NS PRN (13:41)
[2023-03-31] MEDS ORDERED: LOPERAMIDE HCL 2 MG CAPSULE PO PRN (13:41)
[2023-03-31] MEDS: LIDOCAINE 5% TOPICAL PATCH TP SCH (14:48)
[2023-03-31] MEDS: NICOTINE 10 MG CARTRIDGE (INHALER) IH PRN (14:49)
[2023-03-31] MEDS: MELATONIN 5 MG TABLETS PO SCH (22:12)
[2023-03-31] MEDS: LIDOCAINE PATCH REMOVAL MC SCH (22:12)
[2023-03-31] MEDS: THIAMINE HCL 100 MG TABLET (FP) PO SCH (22:13)
[2023-04-01] MEDS ORDERED: methaDONE HCL 40 MG DISPERSABLE TABLET PO SCH (06:00)
[2023-04-01] MEDS: NICOTINE 10 MG CARTRIDGE (INHALER) IH PRN ×2 (07:15→16:52)
[2023-04-01] MEDS: LIDOCAINE 5% TOPICAL PATCH TP SCH (10:23)
[2023-04-01] MEDS: PRENATAL VITAMINS W/ FOLIC ACID TABLET (FP) PO SCH (10:24)
[2023-04-01 12:40] LABS: POTASSIUM 4.6 mmol/L (3.5-5.1)
[2023-04-01 12:43] LABS: CALCIUM 8.9 mg/dL (8.5-10.1); HEMATOCRIT 37.4 % (32.4-45.2); HEMOGLOBIN 12.8 GM/dL (10.7-15.3); MCH 27.8 pg (25.7-33.7); MCHC 34.1 g/dl (32.0-36.0); MEAN CELL VOLUME 81.5 fl (80-96); MEAN PLT VOLUME 8.3 fl (7.5-11.1); PLATELET COUNT 232 10^3/uL (134-434); RBC 4.59 M/mm3 (3.60-5.2); RDW 13.2 % (11.6-15.6); WHITE BLOOD COUNT 4.2 K/mm3 (4.0-10.0)
[2023-04-01 12:44] LABS: ALBUMIN 3.4 g/dl (3.4-5.0); BLOOD UREA NITROGEN 10.7 mg/dL (7-18)
[2023-04-01 12:47] LABS: CREATININE 0.6 mg/dL (0.55-1.3)
[2023-04-01 12:49] LABS: TOT PROT 6.2 g/dl (6.4-8.2)
[2023-04-01 12:52] LABS: BILIRUBIN,TOTAL 0.3 mg/dL (0.2-1)
[2023-04-01 13:05] LABS: SYPHILIS W/ RPR CONF NON-REACTIVE (NONREACTIVE)
[2023-04-01] MEDS: hydrOXYzine PAMOATE 50 MG CAPSULE (FP) PO PRN (16:51)
[2023-04-01] MEDS: NICOTINE POLACRILEX 2 MG GUM BUC PRN (16:52)
[2023-04-01] MEDS: THIAMINE HCL 100 MG TABLET (FP) PO SCH (21:28)
[2023-04-01] MEDS: MELATONIN 5 MG TABLETS PO SCH (21:28)
[2023-04-01] MEDS: LIDOCAINE PATCH REMOVAL MC SCH (21:28)
[2023-04-01] MEDS: METHOCARBAMOL 500 MG TABLET PO PRN (21:29)
[2023-04-02] MEDS: NICOTINE 10 MG CARTRIDGE (INHALER) IH PRN ×3 (06:58→21:27)
[2023-04-02] MEDS: hydrOXYzine PAMOATE 50 MG CAPSULE (FP) PO PRN ×2 (07:00→16:11)
[2023-04-02] MEDS: PRENATAL VITAMINS W/ FOLIC ACID TABLET (FP) PO SCH (09:49)
[2023-04-02] MEDS: LIDOCAINE 5% TOPICAL PATCH TP SCH (09:49)
[2023-04-02] MEDS: MELATONIN 5 MG TABLETS PO SCH (21:26)
[2023-04-02] MEDS: METHOCARBAMOL 500 MG TABLET PO PRN (21:26)
[2023-04-02] MEDS: THIAMINE HCL 100 MG TABLET (FP) PO SCH (21:26)
[2023-04-02] MEDS: LIDOCAINE PATCH REMOVAL MC SCH (21:58)
[2023-04-03] MEDS: NICOTINE 10 MG CARTRIDGE (INHALER) IH PRN ×3 (06:44→16:06)
[2023-04-03] MEDS: PRENATAL VITAMINS W/ FOLIC ACID TABLET (FP) PO SCH (09:41)
[2023-04-03] MEDS: LIDOCAINE 5% TOPICAL PATCH TP SCH (09:42)
[2023-04-03] MEDS: hydrOXYzine PAMOATE 50 MG CAPSULE (FP) PO PRN ×2 (09:42→16:05)
[2023-04-03] MEDS: NICOTINE POLACRILEX 2 MG GUM BUC PRN (10:09)
[2023-04-03 11:29] LABS: PH,URINE 5.5 (5.0-8.0); URINE APPEARANCE CLEAR; URINE BILIRUBIN NEGATIVE (NEGATIVE); URINE COLOR YELLOW; URINE GLUCOSE (UA) NEGATIVE (NEGATIVE); URINE KETONE NEGATIVE (NEGATIVE); URINE LEUK ESTERASE NEGATIVE (NEGATIVE); URINE NITRITE NEGATIVE (NEGATIVE); URINE PROTEIN NEGATIVE (NEGATIVE); URINE UROBILINOGEN 0.2 mg/dL (0.2-1.0)
[2023-04-03] MEDS: THIAMINE HCL 100 MG TABLET (FP) PO SCH (21:36)
[2023-04-03] MEDS: MELATONIN 5 MG TABLETS PO SCH (21:36)
[2023-04-03] MEDS: LIDOCAINE PATCH REMOVAL MC SCH (21:36)
[2023-04-04] MEDS: hydrOXYzine PAMOATE 50 MG CAPSULE (FP) PO PRN ×2 (06:27→13:29)
[2023-04-04] MEDS: NICOTINE 10 MG CARTRIDGE (INHALER) IH PRN ×3 (06:28→20:17)
[2023-04-04] MEDS: METHOCARBAMOL 500 MG TABLET PO PRN ×2 (08:59→20:20)
[2023-04-04] MEDS: LIDOCAINE 5% TOPICAL PATCH TP SCH (09:56)
[2023-04-04] MEDS: PRENATAL VITAMINS W/ FOLIC ACID TABLET (FP) PO SCH (09:56)
[2023-04-04] MEDS: NICOTINE POLACRILEX 2 MG GUM BUC PRN (09:57)
[2023-04-04] MEDS: THIAMINE HCL 100 MG TABLET (FP) PO SCH (21:37)
[2023-04-04] MEDS: MELATONIN 5 MG TABLETS PO SCH (21:37)
[2023-04-04] MEDS: LIDOCAINE PATCH REMOVAL MC SCH (21:38)
[2023-04-05] MEDS: METHOCARBAMOL 500 MG TABLET PO PRN ×2 (06:49→18:38)
[2023-04-05] MEDS: NICOTINE 10 MG CARTRIDGE (INHALER) IH PRN ×3 (06:52→15:49)
[2023-04-05] MEDS: hydrOXYzine PAMOATE 50 MG CAPSULE (FP) PO PRN ×3 (09:00→21:10)
[2023-04-05] MEDS: LIDOCAINE 5% TOPICAL PATCH TP SCH (09:00)
[2023-04-05] MEDS: PRENATAL VITAMINS W/ FOLIC ACID TABLET (FP) PO SCH (09:00)
[2023-04-05] MEDS: NICOTINE POLACRILEX 2 MG GUM BUC PRN (14:40)
[2023-04-05] MEDS: MELATONIN 5 MG TABLETS PO SCH (21:09)
[2023-04-05] MEDS: THIAMINE HCL 100 MG TABLET (FP) PO SCH (21:09)
[2023-04-05] MEDS: QUEtiapine FUMARATE 50 MG TABLET PO SCH (21:09)
[2023-04-05] MEDS: LIDOCAINE PATCH REMOVAL MC SCH (21:10)
[2023-04-06] MEDS: NICOTINE 10 MG CARTRIDGE (INHALER) IH PRN ×5 (07:29→21:53)
[2023-04-06] MEDS ORDERED: NICOTINE 21 MG/24 HOURS TOPICAL PATCH TD PRN (09:06)
[2023-04-06] MEDS: PRENATAL VITAMINS W/ FOLIC ACID TABLET (FP) PO SCH (09:39)
[2023-04-06] MEDS: LIDOCAINE 5% TOPICAL PATCH TP SCH (09:40)
[2023-04-06] MEDS: hydrOXYzine PAMOATE 50 MG CAPSULE (FP) PO PRN ×2 (09:41→15:40)
[2023-04-06] MEDS: NICOTINE 14 MG/24 HOURS TOPICAL PATCH TD PRN (09:42)
[2023-04-06] MEDS: METHOCARBAMOL 500 MG TABLET PO PRN ×2 (12:13→19:03)
[2023-04-06] MEDS: MELATONIN 5 MG TABLETS PO SCH (21:52)
[2023-04-06] MEDS: LIDOCAINE PATCH REMOVAL MC SCH (21:52)
[2023-04-06] MEDS: QUEtiapine FUMARATE 50 MG TABLET PO SCH (21:52)
[2023-04-06] MEDS: THIAMINE HCL 100 MG TABLET (FP) PO SCH (21:52)
[2023-04-07] MEDS: NICOTINE 10 MG CARTRIDGE (INHALER) IH PRN ×3 (06:58→20:21)
[2023-04-07] MEDS: hydrOXYzine PAMOATE 50 MG CAPSULE (FP) PO PRN ×2 (06:58→16:52)
[2023-04-07] MEDS: PRENATAL VITAMINS W/ FOLIC ACID TABLET (FP) PO SCH (09:37)
[2023-04-07] MEDS: LIDOCAINE 5% TOPICAL PATCH TP SCH (09:37)
[2023-04-07] MEDS: METHOCARBAMOL 500 MG TABLET PO PRN ×2 (09:39→21:10)
[2023-04-07] MEDS: NICOTINE 14 MG/24 HOURS TOPICAL PATCH TD PRN (09:39)
[2023-04-07] MEDS: THIAMINE HCL 100 MG TABLET (FP) PO SCH (21:08)
[2023-04-07] MEDS: MELATONIN 5 MG TABLETS PO SCH (21:08)
[2023-04-07] MEDS: LIDOCAINE PATCH REMOVAL MC SCH (21:08)
[2023-04-07] MEDS: QUEtiapine FUMARATE 50 MG TABLET PO SCH (21:08)
[2023-04-08] MEDS ORDERED: METHADONE PO SCH (07:00)
[2023-04-08] MEDS ORDERED: methaDONE HCL 10 MG TABLET PO SCH (07:00)
[2023-04-08] MEDS: LIDOCAINE 5% TOPICAL PATCH TP SCH (10:03)
[2023-04-08] MEDS: PRENATAL VITAMINS W/ FOLIC ACID TABLET (FP) PO SCH (10:03)
[2023-04-08] MEDS: METHOCARBAMOL 500 MG TABLET PO PRN (10:04)
[2023-04-08] MEDS: NICOTINE 14 MG/24 HOURS TOPICAL PATCH TD PRN (10:05)
[2023-04-08] MEDS: NICOTINE 10 MG CARTRIDGE (INHALER) IH PRN ×3 (10:05→21:13)
[2023-04-08] MEDS: hydrOXYzine PAMOATE 50 MG CAPSULE (FP) PO PRN ×2 (15:59→21:13)
[2023-04-08] MEDS: LIDOCAINE PATCH REMOVAL MC SCH (21:11)
[2023-04-08] MEDS: THIAMINE HCL 100 MG TABLET (FP) PO SCH (21:11)
[2023-04-08] MEDS: QUEtiapine FUMARATE 50 MG TABLET PO SCH (21:11)
[2023-04-08] MEDS: MELATONIN 5 MG TABLETS PO SCH (21:11)
[2023-04-09] MEDS: NICOTINE 10 MG CARTRIDGE (INHALER) IH PRN ×4 (06:51→21:27)
[2023-04-09] MEDS: LIDOCAINE 5% TOPICAL PATCH TP SCH (10:23)
[2023-04-09] MEDS: METHOCARBAMOL 500 MG TABLET PO PRN (10:23)
[2023-04-09] MEDS: PRENATAL VITAMINS W/ FOLIC ACID TABLET (FP) PO SCH (10:23)
[2023-04-09] MEDS: hydrOXYzine PAMOATE 50 MG CAPSULE (FP) PO PRN ×2 (10:23→17:20)
[2023-04-09] MEDS: POLYETHYLENE GLYCOL (HEALTHYLAX) 3350 17 GM PACKET PO PRN (10:23)
[2023-04-09] MEDS: NICOTINE 14 MG/24 HOURS TOPICAL PATCH TD PRN (10:23)
[2023-04-09] MEDS: LIDOCAINE PATCH REMOVAL MC SCH (21:26)
[2023-04-09] MEDS: MELATONIN 5 MG TABLETS PO SCH (21:26)
[2023-04-09] MEDS: QUEtiapine FUMARATE 50 MG TABLET PO SCH (21:27)
[2023-04-09] MEDS: THIAMINE HCL 100 MG TABLET (FP) PO SCH (21:27)
[2023-04-10] MEDS: NICOTINE 10 MG CARTRIDGE (INHALER) IH PRN ×4 (07:13→21:20)
[2023-04-10] MEDS: PRENATAL VITAMINS W/ FOLIC ACID TABLET (FP) PO SCH (09:53)
[2023-04-10] MEDS: METHOCARBAMOL 500 MG TABLET PO PRN ×2 (09:55→21:22)
[2023-04-10] MEDS: NICOTINE 14 MG/24 HOURS TOPICAL PATCH TD PRN (09:55)
[2023-04-10] MEDS: hydrOXYzine PAMOATE 50 MG CAPSULE (FP) PO PRN ×2 (09:55→17:29)
[2023-04-10] MEDS: POLYETHYLENE GLYCOL (HEALTHYLAX) 3350 17 GM PACKET PO PRN (09:55)
[2023-04-10] MEDS: LIDOCAINE 5% TOPICAL PATCH TP SCH (10:34)
[2023-04-10] MEDS: MELATONIN 5 MG TABLETS PO SCH (21:22)
[2023-04-10] MEDS: QUEtiapine FUMARATE 50 MG TABLET PO SCH (21:22)
[2023-04-10] MEDS: THIAMINE HCL 100 MG TABLET (FP) PO SCH (21:23)
[2023-04-10] MEDS: LIDOCAINE PATCH REMOVAL MC SCH (21:24)
[2023-04-11] MEDS: hydrOXYzine PAMOATE 50 MG CAPSULE (FP) PO PRN ×3 (06:55→19:30)
[2023-04-11] MEDS: NICOTINE 10 MG CARTRIDGE (INHALER) IH PRN ×4 (06:55→19:30)
[2023-04-11] MEDS: NICOTINE 14 MG/24 HOURS TOPICAL PATCH TD PRN (09:45)
[2023-04-11] MEDS: LIDOCAINE 5% TOPICAL PATCH TP SCH (09:46)
[2023-04-11] MEDS: PRENATAL VITAMINS W/ FOLIC ACID TABLET (FP) PO SCH (09:46)
[2023-04-11] MEDS: METHOCARBAMOL 500 MG TABLET PO PRN ×2 (09:48→16:43)
[2023-04-11] MEDS: POLYETHYLENE GLYCOL (HEALTHYLAX) 3350 17 GM PACKET PO PRN (09:48)
[2023-04-11] MEDS: MELATONIN 5 MG TABLETS PO SCH (21:11)
[2023-04-11] MEDS: LIDOCAINE PATCH REMOVAL MC SCH (21:11)
[2023-04-11] MEDS: QUEtiapine FUMARATE 100 MG TABLET (FP) PO SCH (21:11)
[2023-04-11] MEDS: THIAMINE HCL 100 MG TABLET (FP) PO SCH (21:11)
[2023-04-12] MEDS: NICOTINE 10 MG CARTRIDGE (INHALER) IH PRN ×4 (07:06→20:32)
[2023-04-12] MEDS: LIDOCAINE 5% TOPICAL PATCH TP SCH (10:28)
[2023-04-12] MEDS: NICOTINE 14 MG/24 HOURS TOPICAL PATCH TD PRN (10:28)
[2023-04-12] MEDS: METHOCARBAMOL 500 MG TABLET PO PRN ×2 (10:29→21:17)
[2023-04-12] MEDS: hydrOXYzine PAMOATE 50 MG CAPSULE (FP) PO PRN (10:29)
[2023-04-12] MEDS: PRENATAL VITAMINS W/ FOLIC ACID TABLET (FP) PO SCH (10:29)
[2023-04-12] MEDS: POLYETHYLENE GLYCOL (HEALTHYLAX) 3350 17 GM PACKET PO PRN (10:32)
[2023-04-12] MEDS: MELATONIN 5 MG TABLETS PO SCH (21:16)
[2023-04-12] MEDS: QUEtiapine FUMARATE 100 MG TABLET (FP) PO SCH (21:16)
[2023-04-12] MEDS: THIAMINE HCL 100 MG TABLET (FP) PO SCH (21:16)
[2023-04-12] MEDS: LIDOCAINE PATCH REMOVAL MC SCH (23:20)
[2023-04-13] MEDS: PRENATAL VITAMINS W/ FOLIC ACID TABLET (FP) PO SCH (10:06)
[2023-04-13] MEDS: LIDOCAINE 5% TOPICAL PATCH TP SCH (10:06)
[2023-04-13] MEDS: NICOTINE 21 MG/24 HOURS TOPICAL PATCH TD PRN (10:07)
[2023-04-13] MEDS: METHOCARBAMOL 500 MG TABLET PO PRN (10:07)
[2023-04-13] MEDS: hydrOXYzine PAMOATE 50 MG CAPSULE (FP) PO PRN ×2 (10:07→16:31)
[2023-04-13] MEDS: NICOTINE 10 MG CARTRIDGE (INHALER) IH PRN ×3 (10:08→20:20)
[2023-04-13] MEDS: POLYETHYLENE GLYCOL (HEALTHYLAX) 3350 17 GM PACKET PO PRN (10:10)
[2023-04-13] MEDS: LIDOCAINE PATCH REMOVAL MC SCH (21:24)
[2023-04-13] MEDS: QUEtiapine FUMARATE 100 MG TABLET (FP) PO SCH (21:24)
[2023-04-13] MEDS: MELATONIN 5 MG TABLETS PO SCH (21:24)
[2023-04-13] MEDS: THIAMINE HCL 100 MG TABLET (FP) PO SCH (21:24)
[2023-04-14] MEDS: NICOTINE 10 MG CARTRIDGE (INHALER) IH PRN ×3 (07:18→16:43)
[2023-04-14] MEDS: METHOCARBAMOL 500 MG TABLET PO PRN (09:51)
[2023-04-14] MEDS: NICOTINE 21 MG/24 HOURS TOPICAL PATCH TD PRN (09:51)
[2023-04-14] MEDS: hydrOXYzine PAMOATE 50 MG CAPSULE (FP) PO PRN ×3 (09:51→21:20)
[2023-04-14] MEDS: PRENATAL VITAMINS W/ FOLIC ACID TABLET (FP) PO SCH (09:52)
[2023-04-14] MEDS: LIDOCAINE 5% TOPICAL PATCH TP SCH (09:52)
[2023-04-14] MEDS: POLYETHYLENE GLYCOL (HEALTHYLAX) 3350 17 GM PACKET PO PRN (10:56)
[2023-04-14] MEDS: MELATONIN 5 MG TABLETS PO SCH (21:20)
[2023-04-14] MEDS: THIAMINE HCL 100 MG TABLET (FP) PO SCH (21:20)
[2023-04-14] MEDS: LIDOCAINE PATCH REMOVAL MC SCH (21:20)
[2023-04-14] MEDS: QUEtiapine FUMARATE 100 MG TABLET (FP) PO SCH (21:20)
[2023-04-15] MEDS: NICOTINE 10 MG CARTRIDGE (INHALER) IH PRN ×4 (06:57→19:04)
[2023-04-15] MEDS: hydrOXYzine PAMOATE 50 MG CAPSULE (FP) PO PRN ×2 (07:02→14:29)
[2023-04-15] MEDS: NICOTINE 21 MG/24 HOURS TOPICAL PATCH TD PRN (09:55)
[2023-04-15] MEDS: LIDOCAINE 5% TOPICAL PATCH TP SCH (09:55)
[2023-04-15] MEDS: PRENATAL VITAMINS W/ FOLIC ACID TABLET (FP) PO SCH (09:55)
[2023-04-15] MEDS: POLYETHYLENE GLYCOL (HEALTHYLAX) 3350 17 GM PACKET PO PRN (09:55)
[2023-04-15] MEDS: METHOCARBAMOL 500 MG TABLET PO PRN ×2 (09:55→19:04)
[2023-04-15] MEDS: MELATONIN 5 MG TABLETS PO SCH (21:40)
[2023-04-15] MEDS: THIAMINE HCL 100 MG TABLET (FP) PO SCH (21:40)
[2023-04-15] MEDS: QUEtiapine FUMARATE 100 MG TABLET (FP) PO SCH (21:40)
[2023-04-15] MEDS: LIDOCAINE PATCH REMOVAL MC SCH (21:40)
[2023-04-16] MEDS: hydrOXYzine PAMOATE 50 MG CAPSULE (FP) PO PRN ×2 (06:57→14:44)
[2023-04-16] MEDS: NICOTINE 10 MG CARTRIDGE (INHALER) IH PRN ×2 (06:57→14:44)
[2023-04-16] MEDS: POLYETHYLENE GLYCOL (HEALTHYLAX) 3350 17 GM PACKET PO PRN (09:45)
[2023-04-16] MEDS: PRENATAL VITAMINS W/ FOLIC ACID TABLET (FP) PO SCH (09:45)
[2023-04-16] MEDS: NICOTINE 21 MG/24 HOURS TOPICAL PATCH TD PRN (09:45)
[2023-04-16] MEDS: METHOCARBAMOL 500 MG TABLET PO PRN ×2 (09:45→16:42)
[2023-04-16] MEDS: LIDOCAINE 5% TOPICAL PATCH TP SCH (09:46)
[2023-04-16] MEDS: COLLOIDAL OATMEAL 1 BAR EACH TP PRN (10:02)
[2023-04-16] MEDS: MAG HYDROX/AL HYDROX/SIMETH 30 ML UNIT-DOSE CUP PO PRN (16:42)
[2023-04-16] MEDS: MELATONIN 5 MG TABLETS PO SCH (21:19)
[2023-04-16] MEDS: QUEtiapine FUMARATE 100 MG TABLET (FP) PO SCH (21:20)
[2023-04-16] MEDS: THIAMINE HCL 100 MG TABLET (FP) PO SCH (21:20)
[2023-04-16] MEDS: LIDOCAINE PATCH REMOVAL MC SCH (21:20)
[2023-04-17] MEDS: NICOTINE 10 MG CARTRIDGE (INHALER) IH PRN ×4 (06:47→21:10)
[2023-04-17] MEDS: hydrOXYzine PAMOATE 50 MG CAPSULE (FP) PO PRN ×2 (08:21→17:10)
[2023-04-17] MEDS: LIDOCAINE 5% TOPICAL PATCH TP SCH (10:01)
[2023-04-17] MEDS: PRENATAL VITAMINS W/ FOLIC ACID TABLET (FP) PO SCH (10:01)
[2023-04-17] MEDS: METHOCARBAMOL 500 MG TABLET PO PRN ×2 (10:03→17:10)
[2023-04-17] MEDS: POLYETHYLENE GLYCOL (HEALTHYLAX) 3350 17 GM PACKET PO PRN (10:03)
[2023-04-17] MEDS: NICOTINE 21 MG/24 HOURS TOPICAL PATCH TD PRN (10:05)
[2023-04-17] MEDS: QUEtiapine FUMARATE 100 MG TABLET (FP) PO SCH (21:09)
[2023-04-17] MEDS: THIAMINE HCL 100 MG TABLET (FP) PO SCH (21:09)
[2023-04-17] MEDS: MELATONIN 5 MG TABLETS PO SCH (21:09)
[2023-04-17] MEDS: LIDOCAINE PATCH REMOVAL MC SCH (22:02)
[2023-04-18] MEDS: hydrOXYzine PAMOATE 50 MG CAPSULE (FP) PO PRN ×2 (06:29→14:03)
[2023-04-18] MEDS: NICOTINE 10 MG CARTRIDGE (INHALER) IH PRN ×4 (06:32→19:33)
[2023-04-18] MEDS: LIDOCAINE 5% TOPICAL PATCH TP SCH (10:24)
[2023-04-18] MEDS: PRENATAL VITAMINS W/ FOLIC ACID TABLET (FP) PO SCH (10:24)
[2023-04-18] MEDS: METHOCARBAMOL 500 MG TABLET PO PRN ×2 (10:27→19:35)
[2023-04-18] MEDS: POLYETHYLENE GLYCOL (HEALTHYLAX) 3350 17 GM PACKET PO PRN (10:27)
[2023-04-18] MEDS: NICOTINE 21 MG/24 HOURS TOPICAL PATCH TD PRN (10:29)
[2023-04-18] MEDS: QUEtiapine FUMARATE 50 MG TABLET PO SCH (21:37)
[2023-04-18] MEDS: THIAMINE HCL 100 MG TABLET (FP) PO SCH (21:37)
[2023-04-18] MEDS: MELATONIN 5 MG TABLETS PO SCH (21:37)
[2023-04-18] MEDS: LIDOCAINE PATCH REMOVAL MC SCH (21:56)
[2023-04-19] MEDS: hydrOXYzine PAMOATE 50 MG CAPSULE (FP) PO PRN ×2 (07:00→13:42)
[2023-04-19] MEDS: PRENATAL VITAMINS W/ FOLIC ACID TABLET (FP) PO SCH (10:12)
[2023-04-19] MEDS: LIDOCAINE 5% TOPICAL PATCH TP SCH (10:12)
[2023-04-19] MEDS: METHOCARBAMOL 500 MG TABLET PO PRN (10:13)
[2023-04-19] MEDS: NICOTINE 10 MG CARTRIDGE (INHALER) IH PRN ×3 (10:13→20:02)
[2023-04-19] MEDS: POLYETHYLENE GLYCOL (HEALTHYLAX) 3350 17 GM PACKET PO PRN (10:15)
[2023-04-19] MEDS: NICOTINE 21 MG/24 HOURS TOPICAL PATCH TD PRN (10:15)
[2023-04-19] MEDS: QUEtiapine FUMARATE 50 MG TABLET PO SCH (21:10)
[2023-04-19] MEDS: LIDOCAINE PATCH REMOVAL MC SCH (21:10)
[2023-04-19] MEDS: MELATONIN 5 MG TABLETS PO SCH (21:10)
[2023-04-19] MEDS: THIAMINE HCL 100 MG TABLET (FP) PO SCH (21:11)
[2023-04-20] MEDS: NICOTINE 10 MG CARTRIDGE (INHALER) IH PRN ×4 (06:52→20:33)
[2023-04-20] MEDS: PRENATAL VITAMINS W/ FOLIC ACID TABLET (FP) PO SCH (10:06)
[2023-04-20] MEDS: METHOCARBAMOL 500 MG TABLET PO PRN ×2 (10:08→18:21)
[2023-04-20] MEDS: LIDOCAINE 5% TOPICAL PATCH TP SCH (10:08)
[2023-04-20] MEDS: hydrOXYzine PAMOATE 50 MG CAPSULE (FP) PO PRN ×2 (10:08→18:21)
[2023-04-20] MEDS: POLYETHYLENE GLYCOL (HEALTHYLAX) 3350 17 GM PACKET PO PRN (10:09)
[2023-04-20] MEDS: NICOTINE 21 MG/24 HOURS TOPICAL PATCH TD PRN (10:10)
[2023-04-20] MEDS: METHYL SALICYLATE/MENTHOL OINT 30 GM TUBE TP SCH (16:52)
[2023-04-20] MEDS: QUEtiapine FUMARATE 50 MG TABLET PO SCH (21:30)
[2023-04-20] MEDS: THIAMINE HCL 100 MG TABLET (FP) PO SCH (21:30)
[2023-04-20] MEDS: LIDOCAINE PATCH REMOVAL MC SCH (21:31)
[2023-04-20] MEDS: MELATONIN 5 MG TABLETS PO SCH (21:31)
[2023-04-21] MEDS: NICOTINE 10 MG CARTRIDGE (INHALER) IH PRN ×4 (06:42→21:17)
[2023-04-21] MEDS: hydrOXYzine PAMOATE 50 MG CAPSULE (FP) PO PRN ×2 (06:43→14:39)
[2023-04-21] MEDS: METHOCARBAMOL 500 MG TABLET PO PRN ×2 (09:40→16:57)
[2023-04-21] MEDS: PRENATAL VITAMINS W/ FOLIC ACID TABLET (FP) PO SCH (09:40)
[2023-04-21] MEDS: LIDOCAINE 5% TOPICAL PATCH TP SCH (09:40)
[2023-04-21] MEDS: POLYETHYLENE GLYCOL (HEALTHYLAX) 3350 17 GM PACKET PO PRN (09:40)
[2023-04-21] MEDS: METHYL SALICYLATE/MENTHOL OINT 30 GM TUBE TP SCH (09:40)
[2023-04-21] MEDS: QUEtiapine FUMARATE 50 MG TABLET PO SCH (21:15)
[2023-04-21] MEDS: THIAMINE HCL 100 MG TABLET (FP) PO SCH (21:16)
[2023-04-21] MEDS: LIDOCAINE PATCH REMOVAL MC SCH (21:16)
[2023-04-21] MEDS: MELATONIN 5 MG TABLETS PO SCH (21:16)
[2023-04-22] MEDS ORDERED: methaDONE HCL 10 MG TABLET PO SCH (06:00)
[2023-04-22] MEDS: hydrOXYzine PAMOATE 50 MG CAPSULE (FP) PO PRN ×2 (06:33→14:37)
[2023-04-22] MEDS: NICOTINE 10 MG CARTRIDGE (INHALER) IH PRN ×4 (06:34→20:27)
[2023-04-22] MEDS: LIDOCAINE 5% TOPICAL PATCH TP SCH (09:56)
[2023-04-22] MEDS: PRENATAL VITAMINS W/ FOLIC ACID TABLET (FP) PO SCH (09:56)
[2023-04-22] MEDS: METHOCARBAMOL 500 MG TABLET PO PRN ×2 (09:56→16:54)
[2023-04-22] MEDS: NICOTINE 21 MG/24 HOURS TOPICAL PATCH TD PRN (09:58)
[2023-04-22] MEDS: POLYETHYLENE GLYCOL (HEALTHYLAX) 3350 17 GM PACKET PO PRN (09:59)
[2023-04-22] MEDS: METHYL SALICYLATE/MENTHOL OINT 30 GM TUBE TP SCH (10:03)
[2023-04-22] MEDS: LIDOCAINE PATCH REMOVAL MC SCH (21:41)
[2023-04-22] MEDS: QUEtiapine FUMARATE 50 MG TABLET PO SCH (21:41)
[2023-04-22] MEDS: MELATONIN 5 MG TABLETS PO SCH (21:41)
[2023-04-22] MEDS: THIAMINE HCL 100 MG TABLET (FP) PO SCH (21:42)
[2023-04-23] MEDS: hydrOXYzine PAMOATE 50 MG CAPSULE (FP) PO PRN ×3 (07:01→21:20)
[2023-04-23] MEDS: NICOTINE 10 MG CARTRIDGE (INHALER) IH PRN (07:03)
[2023-04-23] MEDS: COLLOIDAL OATMEAL 1 BAR EACH TP PRN (07:04)
[2023-04-23] MEDS: METHOCARBAMOL 500 MG TABLET PO PRN ×2 (09:56→19:08)
[2023-04-23] MEDS: PRENATAL VITAMINS W/ FOLIC ACID TABLET (FP) PO SCH (09:56)
[2023-04-23] MEDS: POLYETHYLENE GLYCOL (HEALTHYLAX) 3350 17 GM PACKET PO PRN (09:57)
[2023-04-23] MEDS: LIDOCAINE 5% TOPICAL PATCH TP SCH (09:57)
[2023-04-23] MEDS: METHYL SALICYLATE/MENTHOL OINT 30 GM TUBE TP SCH (09:57)
[2023-04-23] MEDS: QUEtiapine FUMARATE 50 MG TABLET PO SCH (20:00)
[2023-04-23] MEDS: THIAMINE HCL 100 MG TABLET (FP) PO SCH (21:21)
[2023-04-23] MEDS: MELATONIN 5 MG TABLETS PO SCH (21:21)
[2023-04-23] MEDS: LIDOCAINE PATCH REMOVAL MC SCH (21:43)
[2023-04-24] MEDS: hydrOXYzine PAMOATE 50 MG CAPSULE (FP) PO PRN ×2 (06:27→14:50)
[2023-04-24] MEDS: NICOTINE 10 MG CARTRIDGE (INHALER) IH PRN ×4 (06:29→21:18)
[2023-04-24] MEDS: NICOTINE 21 MG/24 HOURS TOPICAL PATCH TD PRN (09:50)
[2023-04-24] MEDS: METHYL SALICYLATE/MENTHOL OINT 30 GM TUBE TP SCH (09:50)
[2023-04-24] MEDS: LIDOCAINE 5% TOPICAL PATCH TP SCH (09:50)
[2023-04-24] MEDS: PRENATAL VITAMINS W/ FOLIC ACID TABLET (FP) PO SCH (09:50)
[2023-04-24] MEDS: POLYETHYLENE GLYCOL (HEALTHYLAX) 3350 17 GM PACKET PO PRN (09:51)
[2023-04-24] MEDS: METHOCARBAMOL 500 MG TABLET PO PRN (09:53)
[2023-04-24] MEDS: MELATONIN 5 MG TABLETS PO SCH (21:18)
[2023-04-24] MEDS: QUEtiapine FUMARATE 50 MG TABLET PO SCH (21:18)
[2023-04-24] MEDS: THIAMINE HCL 100 MG TABLET (FP) PO SCH (21:18)
[2023-04-24] MEDS: LIDOCAINE PATCH REMOVAL MC SCH (21:55)
[2023-04-25] MEDS: hydrOXYzine PAMOATE 50 MG CAPSULE (FP) PO PRN ×2 (06:37→13:29)
[2023-04-25] MEDS: NICOTINE 10 MG CARTRIDGE (INHALER) IH PRN ×5 (06:38→21:39)
[2023-04-25] MEDS: PRENATAL VITAMINS W/ FOLIC ACID TABLET (FP) PO SCH (09:36)
[2023-04-25] MEDS: METHYL SALICYLATE/MENTHOL OINT 30 GM TUBE TP SCH (09:36)
[2023-04-25] MEDS: LIDOCAINE 5% TOPICAL PATCH TP SCH (09:37)
[2023-04-25] MEDS: NICOTINE 21 MG/24 HOURS TOPICAL PATCH TD PRN (09:37)
[2023-04-25] MEDS: POLYETHYLENE GLYCOL (HEALTHYLAX) 3350 17 GM PACKET PO PRN (09:39)
[2023-04-25] MEDS: METHOCARBAMOL 500 MG TABLET PO PRN ×2 (09:40→16:52)
[2023-04-25] MEDS: MAG HYDROX/AL HYDROX/SIMETH 30 ML UNIT-DOSE CUP PO PRN (14:58)
[2023-04-25] MEDS: QUEtiapine FUMARATE 50 MG TABLET PO SCH (21:37)
[2023-04-25] MEDS: MELATONIN 5 MG TABLETS PO SCH (21:37)
[2023-04-25] MEDS: LIDOCAINE PATCH REMOVAL MC SCH (21:38)
[2023-04-25] MEDS: THIAMINE HCL 100 MG TABLET (FP) PO SCH (21:38)
[2023-04-26] MEDS: NICOTINE 10 MG CARTRIDGE (INHALER) IH PRN ×4 (06:47→21:09)
[2023-04-26 07:02] VITALS: RESP 18
[2023-04-26] MEDS: NICOTINE 21 MG/24 HOURS TOPICAL PATCH TD PRN (09:37)
[2023-04-26] MEDS: PRENATAL VITAMINS W/ FOLIC ACID TABLET (FP) PO SCH (09:37)
[2023-04-26] MEDS: LIDOCAINE 5% TOPICAL PATCH TP SCH (09:38)
[2023-04-26] MEDS: METHOCARBAMOL 500 MG TABLET PO PRN ×2 (09:40→16:50)
[2023-04-26] MEDS: hydrOXYzine PAMOATE 50 MG CAPSULE (FP) PO PRN ×2 (09:40→21:08)
[2023-04-26] MEDS: POLYETHYLENE GLYCOL (HEALTHYLAX) 3350 17 GM PACKET PO PRN (09:40)
[2023-04-26] MEDS: METHYL SALICYLATE/MENTHOL OINT 30 GM TUBE TP SCH (09:41)
[2023-04-26] MEDS: QUEtiapine FUMARATE 50 MG TABLET PO SCH (21:08)
[2023-04-26] MEDS: MELATONIN 5 MG TABLETS PO SCH (21:08)
[2023-04-26] MEDS: THIAMINE HCL 100 MG TABLET (FP) PO SCH (21:08)
[2023-04-26] MEDS: LIDOCAINE PATCH REMOVAL MC SCH (21:08)
[2023-04-27] MEDS: hydrOXYzine PAMOATE 50 MG CAPSULE (FP) PO PRN ×2 (05:59→14:08)
[2023-04-27] MEDS: NICOTINE 10 MG CARTRIDGE (INHALER) IH PRN ×4 (05:59→19:36)
[2023-04-27] MEDS: NICOTINE 21 MG/24 HOURS TOPICAL PATCH TD PRN (09:49)
[2023-04-27] MEDS: LIDOCAINE 5% TOPICAL PATCH TP SCH (09:49)
[2023-04-27] MEDS: POLYETHYLENE GLYCOL (HEALTHYLAX) 3350 17 GM PACKET PO PRN (09:50)
[2023-04-27] MEDS: METHOCARBAMOL 500 MG TABLET PO PRN ×2 (09:50→16:02)
[2023-04-27] MEDS: PRENATAL VITAMINS W/ FOLIC ACID TABLET (FP) PO SCH (09:50)
[2023-04-27] MEDS: METHYL SALICYLATE/MENTHOL OINT 30 GM TUBE TP SCH (09:53)
[2023-04-27] MEDS: LIDOCAINE PATCH REMOVAL MC SCH (21:39)
[2023-04-27] MEDS: THIAMINE HCL 100 MG TABLET (FP) PO SCH (21:39)
[2023-04-27] MEDS: QUEtiapine FUMARATE 50 MG TABLET PO SCH (21:39)
[2023-04-27] MEDS: MELATONIN 5 MG TABLETS PO SCH (21:39)
[2023-04-28] MEDS: hydrOXYzine PAMOATE 50 MG CAPSULE (FP) PO PRN (07:05)
[2023-04-28] MEDS: NICOTINE 10 MG CARTRIDGE (INHALER) IH PRN (07:06)
[2023-04-28] MEDS: METHOCARBAMOL 500 MG TABLET PO PRN (07:06)
[2023-04-28 07:17] VITALS: BP 112/69; PULSE 95; TEMP 97.2
[2023-04-28] MEDS: LIDOCAINE 5% TOPICAL PATCH TP SCH (09:46)
[2023-04-28] MEDS: PRENATAL VITAMINS W/ FOLIC ACID TABLET (FP) PO SCH (09:47)
[2023-04-28] MEDS: NICOTINE 21 MG/24 HOURS TOPICAL PATCH TD PRN (09:48)
[2023-04-28] MEDS: METHYL SALICYLATE/MENTHOL OINT 30 GM TUBE TP SCH (09:52)
== END 2023-04-28 10:50 | disposition home or self-care (01) | DRG 772 ==
LOC: YASAS 09:23 → Y5N 13:12
PROVIDERS: ADMIT Allergy & Immunology; ATTEND Psychiatry & Neurology Pain Medicine
PROC: HZ42ZZZ Group Counseling for Substance Abuse Treatment, Cognitive-Behavioral (ICD-10-PCS; principal; 2023-03-31)
DX: F11.20 Opioid dependence, uncomplicated (principal); F14.20 Cocaine dependence, uncomplicated; F12.20 Cannabis dependence, uncomplicated; F17.210 Nicotine dependence, cigarettes, uncomplicated; F19.24 Other psychoactive substance dependence with psychoactive substance-induced mood disorder; F41.9 Anxiety disorder, unspecified; S43.004D Unspecified dislocation of right shoulder joint, subsequent encounter; X58.XXXD Exposure to other specified factors, subsequent encounter; Z28.310 Unvaccinated for COVID-19; Z28.21 Immunization not carried out because of patient refusal
CPT/HCPCS: 36415; 80053; 81003; 81025; 85027; 86780; 86803; 87635

== ENCOUNTER 2023-07-04 08:51 | Inpatient (IN) | payer OTHER ==
[2023-07-04 09:29] VITALS: BMI 22.3
[2023-07-04] MEDS ORDERED: NALOXONE HCL 0.4 MG/ML VIAL IM PRN (10:29)
[2023-07-04] MEDS ORDERED: NALOXONE HCL (KLOXXADO) 8 MG SPRAY NS PRN (10:29)
[2023-07-04] MEDS ORDERED: hydrOXYzine PAMOATE 25 MG CAPSULE (FP) PO PRN (10:29)
[2023-07-04] MEDS ORDERED: guaiFENesin 600 MG TABLET.ER (FP) PO PRN (10:29)
[2023-07-04] MEDS ORDERED: MAGNESIUM HYDROX 2400MG/30ML ORAL SUSPENSION 30 ML CUP PO PRN (10:29)
[2023-07-04] MEDS ORDERED: BENZOCAINE/MENTHOL (CHLORASEPTIC ) LOZENGE MM PRN (10:29)
[2023-07-04] MEDS ORDERED: LOPERAMIDE HCL 2 MG CAPSULE PO PRN (10:29)
[2023-07-04] MEDS ORDERED: NICOTINE POLACRILEX 2 MG GUM BUC PRN (10:29)
[2023-07-04] MEDS ORDERED: BENZONATATE 200 MG CAPSULE PO PRN (10:29)
[2023-07-04] MEDS ORDERED: methaDONE HCL 10 MG TABLET PO SCH ×2 (14:30)
[2023-07-04] MEDS ORDERED: methaDONE 80 MG, methaDONE 20 MG PO SCH (14:30)
[2023-07-04] MEDS: methaDONE 80 MG, methaDONE 20 MG PO SCH (15:26)
[2023-07-04] MEDS: QUEtiapine FUMARATE 50 MG TABLET PO SCH (21:10)
[2023-07-04] MEDS: hydrOXYzine PAMOATE 50 MG CAPSULE (FP) PO PRN (21:10)
[2023-07-04] MEDS: THIAMINE HCL 100 MG TABLET (FP) PO SCH (21:10)
[2023-07-04] MEDS: IBUPROFEN 600 MG TABLET (FP) PO PRN (21:11)
[2023-07-04] MEDS ORDERED: MELATONIN 5 MG TABLETS PO SCH (22:00)
[2023-07-05] MEDS: methaDONE 80 MG, methaDONE 20 MG PO SCH (06:45)
[2023-07-05] MEDS: NICOTINE 21 MG/24 HOURS TOPICAL PATCH TD SCH (10:16)
[2023-07-05] MEDS: PRENATAL VITAMINS W/ FOLIC ACID TABLET (FP) PO SCH (10:16)
[2023-07-05 10:19] LABS: POTASSIUM 4.1 mmol/L (3.5-5.1)
[2023-07-05 10:22] LABS: HEMATOCRIT 37.9 % (32.4-45.2); HEMOGLOBIN 12.3 GM/dL (10.7-15.3); MCH 27.3 pg (25.7-33.7); MCHC 32.4 g/dl (32.0-36.0); MEAN CELL VOLUME 84.2 fl (80-96); MEAN PLT VOLUME 8.5 fl (7.5-11.1); PLATELET COUNT 194 10^3/uL (134-434); RDW 13.4 % (11.6-15.6)
[2023-07-05 10:33] LABS: TOT PROT 6.2 g/dl (6.4-8.2)
[2023-07-05 10:35] LABS: ALBUMIN 3.2 g/dl (3.4-5.0)
[2023-07-05 10:37] LABS: BLOOD UREA NITROGEN 18.3 mg/dL (7-18)
[2023-07-05 10:42] LABS: BILIRUBIN,TOTAL 0.3 mg/dL (0.2-1); CALCIUM 8.6 mg/dL (8.5-10.1)
[2023-07-05 10:45] LABS: CREATININE 0.6 mg/dL (0.55-1.3)
[2023-07-05] MEDS: hydrOXYzine PAMOATE 50 MG CAPSULE (FP) PO PRN ×2 (13:57→23:13)
[2023-07-05 17:13] LABS: PH,URINE 7.5 (5.0-8.0); URINE APPEARANCE CLEAR; URINE BILIRUBIN NEGATIVE (NEGATIVE); URINE COLOR YELLOW; URINE GLUCOSE (UA) NEGATIVE (NEGATIVE); URINE KETONE NEGATIVE (NEGATIVE); URINE LEUK ESTERASE NEGATIVE (NEGATIVE); URINE NITRITE NEGATIVE (NEGATIVE); URINE PROTEIN NEGATIVE (NEGATIVE)
[2023-07-05] MEDS: QUEtiapine FUMARATE 50 MG TABLET PO SCH (21:38)
[2023-07-05] MEDS: THIAMINE HCL 100 MG TABLET (FP) PO SCH (21:38)
[2023-07-05] MEDS: IBUPROFEN 600 MG TABLET (FP) PO PRN (23:15)
[2023-07-06] MEDS: methaDONE 80 MG, methaDONE 20 MG PO SCH (06:47)
[2023-07-06] MEDS: PRENATAL VITAMINS W/ FOLIC ACID TABLET (FP) PO SCH (10:27)
[2023-07-06] MEDS: NICOTINE 21 MG/24 HOURS TOPICAL PATCH TD SCH (10:28)
[2023-07-06] MEDS: COLLOIDAL OATMEAL 1 BAR EACH TP PRN (10:29)
[2023-07-06] MEDS: hydrOXYzine PAMOATE 50 MG CAPSULE (FP) PO PRN ×2 (10:29→19:41)
[2023-07-06] MEDS: IBUPROFEN 600 MG TABLET (FP) PO PRN (19:41)
[2023-07-06] MEDS: QUEtiapine FUMARATE 50 MG TABLET PO SCH (21:16)
[2023-07-06] MEDS: THIAMINE HCL 100 MG TABLET (FP) PO SCH (21:17)
[2023-07-07] MEDS: methaDONE 80 MG, methaDONE 20 MG PO SCH (06:53)
[2023-07-07] MEDS: NICOTINE 21 MG/24 HOURS TOPICAL PATCH TD SCH (10:03)
[2023-07-07] MEDS: PRENATAL VITAMINS W/ FOLIC ACID TABLET (FP) PO SCH (10:04)
[2023-07-07] MEDS: hydrOXYzine PAMOATE 50 MG CAPSULE (FP) PO PRN ×2 (10:05→21:04)
[2023-07-07] MEDS: THIAMINE HCL 100 MG TABLET (FP) PO SCH (21:02)
[2023-07-07] MEDS: QUEtiapine FUMARATE 50 MG TABLET PO SCH (21:02)
[2023-07-07] MEDS: METHOCARBAMOL 500 MG TABLET PO PRN (21:04)
[2023-07-08] MEDS: methaDONE 80 MG, methaDONE 20 MG PO SCH (07:32)
[2023-07-08] MEDS: PRENATAL VITAMINS W/ FOLIC ACID TABLET (FP) PO SCH (10:34)
[2023-07-08] MEDS: NICOTINE 21 MG/24 HOURS TOPICAL PATCH TD SCH (10:34)
[2023-07-08] MEDS: hydrOXYzine PAMOATE 50 MG CAPSULE (FP) PO PRN ×3 (10:37→22:55)
[2023-07-08] MEDS: METHOCARBAMOL 500 MG TABLET PO PRN ×2 (10:37→17:05)
[2023-07-08] MEDS: IBUPROFEN 400 MG TABLET (FP) PO PRN (15:53)
[2023-07-08] MEDS: THIAMINE HCL 100 MG TABLET (FP) PO SCH (21:35)
[2023-07-08] MEDS: QUEtiapine FUMARATE 50 MG TABLET PO SCH (21:35)
[2023-07-09] MEDS: methaDONE 80 MG, methaDONE 20 MG PO SCH (07:47)
[2023-07-09] MEDS: NICOTINE 21 MG/24 HOURS TOPICAL PATCH TD SCH (09:57)
[2023-07-09] MEDS: PRENATAL VITAMINS W/ FOLIC ACID TABLET (FP) PO SCH (09:57)
[2023-07-09] MEDS: METHOCARBAMOL 500 MG TABLET PO PRN (09:58)
[2023-07-09] MEDS: hydrOXYzine PAMOATE 50 MG CAPSULE (FP) PO PRN ×2 (09:58→21:02)
[2023-07-09] MEDS: THIAMINE HCL 100 MG TABLET (FP) PO SCH (21:02)
[2023-07-09] MEDS: QUEtiapine FUMARATE 50 MG TABLET PO SCH (21:02)
[2023-07-10] MEDS: methaDONE 80 MG, methaDONE 20 MG PO SCH (06:50)
[2023-07-10] MEDS: NICOTINE 21 MG/24 HOURS TOPICAL PATCH TD SCH (10:51)
[2023-07-10] MEDS: PRENATAL VITAMINS W/ FOLIC ACID TABLET (FP) PO SCH (10:51)
[2023-07-10] MEDS: POLYETHYLENE GLYCOL (HEALTHYLAX) 3350 17 GM PACKET PO PRN (10:53)
[2023-07-10] MEDS: hydrOXYzine PAMOATE 50 MG CAPSULE (FP) PO PRN ×2 (10:53→19:02)
[2023-07-10] MEDS: METHOCARBAMOL 500 MG TABLET PO PRN ×2 (10:53→19:02)
[2023-07-10] MEDS ORDERED: guaiFENesin 200 MG/10 ML 10 ML UNIT-DOSE CUPS PO PRN (12:34)
[2023-07-10] MEDS: QUEtiapine FUMARATE 50 MG TABLET PO SCH (21:15)
[2023-07-10] MEDS: THIAMINE HCL 100 MG TABLET (FP) PO SCH (21:15)
[2023-07-10] MEDS: guaiFENesin 600 MG TABLET.ER (FP) PO SCH (21:15)
[2023-07-10] MEDS ORDERED: guaiFENesin 600 MG TABLET.ER (FP) PO SCH (22:00)
[2023-07-11] MEDS: methaDONE 80 MG, methaDONE 20 MG PO SCH (06:44)
[2023-07-11] MEDS: POLYETHYLENE GLYCOL (HEALTHYLAX) 3350 17 GM PACKET PO PRN (10:17)
[2023-07-11] MEDS: NICOTINE 21 MG/24 HOURS TOPICAL PATCH TD SCH (10:17)
[2023-07-11] MEDS: METHOCARBAMOL 500 MG TABLET PO PRN ×2 (10:17→21:26)
[2023-07-11] MEDS: guaiFENesin 600 MG TABLET.ER (FP) PO SCH ×2 (10:17→21:24)
[2023-07-11] MEDS: hydrOXYzine PAMOATE 50 MG CAPSULE (FP) PO PRN ×2 (10:17→21:24)
[2023-07-11] MEDS: PRENATAL VITAMINS W/ FOLIC ACID TABLET (FP) PO SCH (10:17)
[2023-07-11] MEDS: MAG HYDROX/AL HYDROX/SIMETH 30 ML UNIT-DOSE CUP PO PRN (14:53)
[2023-07-11] MEDS: THIAMINE HCL 100 MG TABLET (FP) PO SCH (21:23)
[2023-07-11] MEDS: QUEtiapine FUMARATE 50 MG TABLET PO SCH (21:24)
[2023-07-12] MEDS ORDERED: methaDONE HCL 10 MG TABLET PO SCH (06:00)
[2023-07-12] MEDS: hydrOXYzine PAMOATE 50 MG CAPSULE (FP) PO PRN ×3 (06:39→21:34)
[2023-07-12] MEDS: methaDONE 80 MG, methaDONE 20 MG PO SCH (06:39)
[2023-07-12] MEDS: guaiFENesin 600 MG TABLET.ER (FP) PO SCH ×2 (10:05→21:34)
[2023-07-12] MEDS: NICOTINE 21 MG/24 HOURS TOPICAL PATCH TD SCH (10:05)
[2023-07-12] MEDS: PRENATAL VITAMINS W/ FOLIC ACID TABLET (FP) PO SCH (10:05)
[2023-07-12] MEDS: METHOCARBAMOL 500 MG TABLET PO PRN ×2 (10:06→21:39)
[2023-07-12] MEDS: POLYETHYLENE GLYCOL (HEALTHYLAX) 3350 17 GM PACKET PO PRN (10:08)
[2023-07-12] MEDS ORDERED: PERMETHRIN (NIX CREAM SCALP RINSE) 59 ML 1% BOTTLE TP SCH (11:15)
[2023-07-12] MEDS: THIAMINE HCL 100 MG TABLET (FP) PO SCH (21:34)
[2023-07-12] MEDS: QUEtiapine FUMARATE 50 MG TABLET PO SCH (21:34)
[2023-07-13] MEDS: methaDONE 80 MG, methaDONE 20 MG PO SCH (06:43)
[2023-07-13] MEDS: hydrOXYzine PAMOATE 50 MG CAPSULE (FP) PO PRN ×3 (06:43→21:05)
[2023-07-13] MEDS: COLLOIDAL OATMEAL 1 BAR EACH TP PRN (07:41)
[2023-07-13] MEDS: PRENATAL VITAMINS W/ FOLIC ACID TABLET (FP) PO SCH (10:16)
[2023-07-13] MEDS: guaiFENesin 600 MG TABLET.ER (FP) PO SCH ×2 (10:16→21:05)
[2023-07-13] MEDS: NICOTINE 21 MG/24 HOURS TOPICAL PATCH TD SCH (10:16)
[2023-07-13] MEDS: METHOCARBAMOL 500 MG TABLET PO PRN ×2 (10:35→17:51)
[2023-07-13] MEDS: POLYETHYLENE GLYCOL (HEALTHYLAX) 3350 17 GM PACKET PO PRN (10:35)
[2023-07-13] MEDS: SELENIUM SULFIDE 2.25% 180 ML SHAMPOO TP SCH (10:46)
[2023-07-13] MEDS: MAG HYDROX/AL HYDROX/SIMETH 30 ML UNIT-DOSE CUP PO PRN (15:06)
[2023-07-13] MEDS: THIAMINE HCL 100 MG TABLET (FP) PO SCH (21:05)
[2023-07-13] MEDS: QUEtiapine FUMARATE 50 MG TABLET PO SCH (21:05)
[2023-07-14] MEDS: methaDONE 80 MG, methaDONE 20 MG PO SCH (05:50)
[2023-07-14] MEDS: hydrOXYzine PAMOATE 50 MG CAPSULE (FP) PO PRN ×3 (05:51→20:14)
[2023-07-14] MEDS: PRENATAL VITAMINS W/ FOLIC ACID TABLET (FP) PO SCH (09:55)
[2023-07-14] MEDS: NICOTINE 21 MG/24 HOURS TOPICAL PATCH TD SCH (09:55)
[2023-07-14] MEDS: guaiFENesin 600 MG TABLET.ER (FP) PO SCH ×2 (09:55→21:11)
[2023-07-14] MEDS: METHOCARBAMOL 500 MG TABLET PO PRN ×2 (09:56→20:14)
[2023-07-14] MEDS: POLYETHYLENE GLYCOL (HEALTHYLAX) 3350 17 GM PACKET PO PRN (09:58)
[2023-07-14] MEDS: SELENIUM SULFIDE 2.25% 180 ML SHAMPOO TP SCH (10:00)
[2023-07-14] MEDS: SIMETHICONE 80 MG TAB.CHEW (FP) PO PRN ×2 (17:04→22:27)
[2023-07-14] MEDS: THIAMINE HCL 100 MG TABLET (FP) PO SCH (21:08)
[2023-07-14] MEDS: QUEtiapine FUMARATE 50 MG TABLET PO SCH (21:10)
[2023-07-15] MEDS: hydrOXYzine PAMOATE 50 MG CAPSULE (FP) PO PRN ×3 (06:18→21:13)
[2023-07-15] MEDS: methaDONE 80 MG, methaDONE 20 MG PO SCH (06:18)
[2023-07-15] MEDS: guaiFENesin 600 MG TABLET.ER (FP) PO SCH ×2 (10:21→21:13)
[2023-07-15] MEDS: PRENATAL VITAMINS W/ FOLIC ACID TABLET (FP) PO SCH (10:21)
[2023-07-15] MEDS: NICOTINE 21 MG/24 HOURS TOPICAL PATCH TD SCH (10:22)
[2023-07-15] MEDS: METHOCARBAMOL 500 MG TABLET PO PRN ×2 (10:23→21:13)
[2023-07-15] MEDS: SELENIUM SULFIDE 2.25% 180 ML SHAMPOO TP SCH (10:26)
[2023-07-15] MEDS: SIMETHICONE 80 MG TAB.CHEW (FP) PO PRN (15:54)
[2023-07-15] MEDS: THIAMINE HCL 100 MG TABLET (FP) PO SCH (21:13)
[2023-07-15] MEDS: QUEtiapine FUMARATE 50 MG TABLET PO SCH (21:13)
[2023-07-16] MEDS: methaDONE 80 MG, methaDONE 20 MG PO SCH (06:25)
[2023-07-16] MEDS: hydrOXYzine PAMOATE 50 MG CAPSULE (FP) PO PRN ×3 (06:25→19:14)
[2023-07-16] MEDS: SELENIUM SULFIDE 2.25% 180 ML SHAMPOO TP SCH (10:12)
[2023-07-16] MEDS: PRENATAL VITAMINS W/ FOLIC ACID TABLET (FP) PO SCH (10:12)
[2023-07-16] MEDS: POLYETHYLENE GLYCOL (HEALTHYLAX) 3350 17 GM PACKET PO PRN (10:12)
[2023-07-16] MEDS: guaiFENesin 600 MG TABLET.ER (FP) PO SCH ×2 (10:12→21:08)
[2023-07-16] MEDS: NICOTINE 21 MG/24 HOURS TOPICAL PATCH TD SCH (10:12)
[2023-07-16] MEDS: METHOCARBAMOL 500 MG TABLET PO PRN ×2 (10:12→21:08)
[2023-07-16] MEDS: SIMETHICONE 80 MG TAB.CHEW (FP) PO PRN ×2 (10:14→20:09)
[2023-07-16] MEDS: THIAMINE HCL 100 MG TABLET (FP) PO SCH (21:08)
[2023-07-16] MEDS: QUEtiapine FUMARATE 50 MG TABLET PO SCH (21:08)
[2023-07-17] MEDS: hydrOXYzine PAMOATE 50 MG CAPSULE (FP) PO PRN ×3 (06:12→18:59)
[2023-07-17] MEDS: methaDONE 80 MG, methaDONE 20 MG PO SCH (06:12)
[2023-07-17] MEDS: PRENATAL VITAMINS W/ FOLIC ACID TABLET (FP) PO SCH (10:23)
[2023-07-17] MEDS: SELENIUM SULFIDE 2.25% 180 ML SHAMPOO TP SCH (10:23)
[2023-07-17] MEDS: guaiFENesin 600 MG TABLET.ER (FP) PO SCH ×2 (10:23→21:04)
[2023-07-17] MEDS: NICOTINE 21 MG/24 HOURS TOPICAL PATCH TD SCH (10:23)
[2023-07-17] MEDS: METHOCARBAMOL 500 MG TABLET PO PRN ×2 (10:24→21:04)
[2023-07-17] MEDS: POLYETHYLENE GLYCOL (HEALTHYLAX) 3350 17 GM PACKET PO PRN (10:24)
[2023-07-17] MEDS: SIMETHICONE 80 MG TAB.CHEW (FP) PO PRN (10:25)
[2023-07-17] MEDS: THIAMINE HCL 100 MG TABLET (FP) PO SCH (21:04)
[2023-07-17] MEDS: QUEtiapine FUMARATE 50 MG TABLET PO SCH (21:04)
[2023-07-18] MEDS: methaDONE 80 MG, methaDONE 20 MG PO SCH (06:57)
[2023-07-18] MEDS: NICOTINE 21 MG/24 HOURS TOPICAL PATCH TD SCH (10:06)
[2023-07-18] MEDS: SELENIUM SULFIDE 2.25% 180 ML SHAMPOO TP SCH (10:07)
[2023-07-18] MEDS: PRENATAL VITAMINS W/ FOLIC ACID TABLET (FP) PO SCH (10:07)
[2023-07-18] MEDS: METHOCARBAMOL 500 MG TABLET PO PRN ×2 (10:09→21:13)
[2023-07-18] MEDS: guaiFENesin 600 MG TABLET.ER (FP) PO SCH ×2 (10:09→21:13)
[2023-07-18] MEDS: POLYETHYLENE GLYCOL (HEALTHYLAX) 3350 17 GM PACKET PO PRN (10:09)
[2023-07-18] MEDS: hydrOXYzine PAMOATE 50 MG CAPSULE (FP) PO PRN ×2 (12:39→21:13)
[2023-07-18] MEDS: SIMETHICONE 80 MG TAB.CHEW (FP) PO PRN ×2 (14:30→22:31)
[2023-07-18] MEDS: IBUPROFEN 400 MG TABLET (FP) PO PRN (17:56)
[2023-07-18] MEDS: THIAMINE HCL 100 MG TABLET (FP) PO SCH (21:13)
[2023-07-18] MEDS: QUEtiapine FUMARATE 50 MG TABLET PO SCH (21:13)
[2023-07-19] MEDS: hydrOXYzine PAMOATE 50 MG CAPSULE (FP) PO PRN ×3 (06:27→21:28)
[2023-07-19] MEDS: methaDONE 80 MG, methaDONE 20 MG PO SCH (06:27)
[2023-07-19] MEDS: guaiFENesin 600 MG TABLET.ER (FP) PO SCH ×2 (10:04→21:27)
[2023-07-19] MEDS: METHOCARBAMOL 500 MG TABLET PO PRN ×2 (10:04→21:27)
[2023-07-19] MEDS: NICOTINE 21 MG/24 HOURS TOPICAL PATCH TD SCH (10:05)
[2023-07-19] MEDS: POLYETHYLENE GLYCOL (HEALTHYLAX) 3350 17 GM PACKET PO PRN (10:05)
[2023-07-19] MEDS: PRENATAL VITAMINS W/ FOLIC ACID TABLET (FP) PO SCH (10:05)
[2023-07-19] MEDS: SELENIUM SULFIDE 2.25% 180 ML SHAMPOO TP SCH (10:06)
[2023-07-19] MEDS: SIMETHICONE 80 MG TAB.CHEW (FP) PO PRN ×3 (10:47→21:27)
[2023-07-19] MEDS: QUEtiapine FUMARATE 100 MG TABLET (FP) PO SCH (21:27)
[2023-07-19] MEDS: THIAMINE HCL 100 MG TABLET (FP) PO SCH (21:27)
[2023-07-20] MEDS: hydrOXYzine PAMOATE 50 MG CAPSULE (FP) PO PRN ×3 (06:35→21:08)
[2023-07-20] MEDS: methaDONE 80 MG, methaDONE 20 MG PO SCH (06:35)
[2023-07-20] MEDS: PRENATAL VITAMINS W/ FOLIC ACID TABLET (FP) PO SCH (10:28)
[2023-07-20] MEDS: guaiFENesin 600 MG TABLET.ER (FP) PO SCH ×2 (10:28→21:04)
[2023-07-20] MEDS: POLYETHYLENE GLYCOL (HEALTHYLAX) 3350 17 GM PACKET PO PRN (10:28)
[2023-07-20] MEDS: NICOTINE 21 MG/24 HOURS TOPICAL PATCH TD SCH (10:28)
[2023-07-20] MEDS: METHOCARBAMOL 500 MG TABLET PO PRN ×2 (10:30→18:27)
[2023-07-20] MEDS: SIMETHICONE 80 MG TAB.CHEW (FP) PO PRN ×2 (13:32→21:08)
[2023-07-20] MEDS: QUEtiapine FUMARATE 100 MG TABLET (FP) PO SCH (21:04)
[2023-07-20] MEDS: THIAMINE HCL 100 MG TABLET (FP) PO SCH (21:05)
[2023-07-20] MEDS: ACETAMINOPHEN 325 MG TABLET (FP) PO PRN (21:08)
[2023-07-21] MEDS: hydrOXYzine PAMOATE 50 MG CAPSULE (FP) PO PRN ×3 (07:02→21:03)
[2023-07-21] MEDS: methaDONE 80 MG, methaDONE 20 MG PO SCH (07:03)
[2023-07-21] MEDS: IBUPROFEN 600 MG TABLET (FP) PO PRN (07:04)
[2023-07-21] MEDS: guaiFENesin 600 MG TABLET.ER (FP) PO SCH ×2 (10:24→21:03)
[2023-07-21] MEDS: NICOTINE 21 MG/24 HOURS TOPICAL PATCH TD SCH (10:24)
[2023-07-21] MEDS: PRENATAL VITAMINS W/ FOLIC ACID TABLET (FP) PO SCH (10:24)
[2023-07-21] MEDS: POLYETHYLENE GLYCOL (HEALTHYLAX) 3350 17 GM PACKET PO PRN (10:25)
[2023-07-21] MEDS: METHOCARBAMOL 500 MG TABLET PO PRN ×2 (10:25→21:03)
[2023-07-21] MEDS: SIMETHICONE 80 MG TAB.CHEW (FP) PO PRN ×2 (10:25→21:03)
[2023-07-21] MEDS: QUEtiapine FUMARATE 100 MG TABLET (FP) PO SCH (21:03)
[2023-07-21] MEDS: THIAMINE HCL 100 MG TABLET (FP) PO SCH (21:03)
[2023-07-21] MEDS: LIDOCAINE PATCH REMOVAL MC SCH (22:26)
[2023-07-22] MEDS: methaDONE 80 MG, methaDONE 20 MG PO SCH (06:28)
[2023-07-22] MEDS: hydrOXYzine PAMOATE 50 MG CAPSULE (FP) PO PRN ×3 (06:28→19:18)
[2023-07-22] MEDS: PRENATAL VITAMINS W/ FOLIC ACID TABLET (FP) PO SCH (10:21)
[2023-07-22] MEDS: POLYETHYLENE GLYCOL (HEALTHYLAX) 3350 17 GM PACKET PO PRN (10:21)
[2023-07-22] MEDS: NICOTINE 21 MG/24 HOURS TOPICAL PATCH TD SCH (10:21)
[2023-07-22] MEDS: METHOCARBAMOL 500 MG TABLET PO PRN ×2 (10:21→21:46)
[2023-07-22] MEDS: LIDOCAINE 5% TOPICAL PATCH TP SCH (10:24)
[2023-07-22] MEDS: guaiFENesin 600 MG TABLET.ER (FP) PO SCH ×2 (10:24→21:53)
[2023-07-22] MEDS: QUEtiapine FUMARATE 100 MG TABLET (FP) PO SCH (21:46)
[2023-07-22] MEDS: SIMETHICONE 80 MG TAB.CHEW (FP) PO PRN (21:46)
[2023-07-22] MEDS: LIDOCAINE PATCH REMOVAL MC SCH (21:47)
[2023-07-22] MEDS: THIAMINE HCL 100 MG TABLET (FP) PO SCH (21:47)
[2023-07-23] MEDS: hydrOXYzine PAMOATE 50 MG CAPSULE (FP) PO PRN ×3 (06:46→21:09)
[2023-07-23] MEDS: methaDONE 80 MG, methaDONE 20 MG PO SCH (06:46)
[2023-07-23] MEDS: LIDOCAINE 5% TOPICAL PATCH TP SCH (10:15)
[2023-07-23] MEDS: POLYETHYLENE GLYCOL (HEALTHYLAX) 3350 17 GM PACKET PO PRN (10:15)
[2023-07-23] MEDS: guaiFENesin 600 MG TABLET.ER (FP) PO SCH ×2 (10:16→21:10)
[2023-07-23] MEDS: NICOTINE 21 MG/24 HOURS TOPICAL PATCH TD SCH (10:16)
[2023-07-23] MEDS: PRENATAL VITAMINS W/ FOLIC ACID TABLET (FP) PO SCH (10:16)
[2023-07-23] MEDS: METHOCARBAMOL 500 MG TABLET PO PRN ×2 (10:16→16:45)
[2023-07-23] MEDS: IBUPROFEN 600 MG TABLET (FP) PO PRN (16:45)
[2023-07-23] MEDS: QUEtiapine FUMARATE 100 MG TABLET (FP) PO SCH (21:09)
[2023-07-23] MEDS: THIAMINE HCL 100 MG TABLET (FP) PO SCH (21:09)
[2023-07-23] MEDS: SIMETHICONE 80 MG TAB.CHEW (FP) PO PRN (21:09)
[2023-07-23] MEDS: ACETAMINOPHEN 325 MG TABLET (FP) PO PRN (21:10)
[2023-07-23] MEDS: LIDOCAINE PATCH REMOVAL MC SCH (21:11)
[2023-07-24] MEDS: hydrOXYzine PAMOATE 50 MG CAPSULE (FP) PO PRN ×3 (06:33→21:17)
[2023-07-24] MEDS: methaDONE 80 MG, methaDONE 20 MG PO SCH (06:33)
[2023-07-24] MEDS: PRENATAL VITAMINS W/ FOLIC ACID TABLET (FP) PO SCH (09:59)
[2023-07-24] MEDS: NICOTINE 21 MG/24 HOURS TOPICAL PATCH TD SCH (09:59)
[2023-07-24] MEDS: guaiFENesin 600 MG TABLET.ER (FP) PO SCH ×2 (10:00→21:14)
[2023-07-24] MEDS: METHOCARBAMOL 500 MG TABLET PO PRN ×2 (10:00→17:55)
[2023-07-24] MEDS: SIMETHICONE 80 MG TAB.CHEW (FP) PO PRN (10:01)
[2023-07-24] MEDS: POLYETHYLENE GLYCOL (HEALTHYLAX) 3350 17 GM PACKET PO PRN (10:01)
[2023-07-24] MEDS: IBUPROFEN 400 MG TABLET (FP) PO PRN ×2 (10:02→17:55)
[2023-07-24] MEDS: LIDOCAINE 5% TOPICAL PATCH TP SCH (10:07)
[2023-07-24] MEDS: QUEtiapine FUMARATE 100 MG TABLET (FP) PO SCH (21:14)
[2023-07-24] MEDS: THIAMINE HCL 100 MG TABLET (FP) PO SCH (21:14)
[2023-07-24] MEDS: LIDOCAINE PATCH REMOVAL MC SCH (21:15)
[2023-07-25] MEDS: IBUPROFEN 600 MG TABLET (FP) PO PRN (01:16)
[2023-07-25] MEDS: methaDONE 80 MG, methaDONE 20 MG PO SCH (06:52)
[2023-07-25] MEDS: hydrOXYzine PAMOATE 50 MG CAPSULE (FP) PO PRN ×2 (06:52→17:51)
[2023-07-25] MEDS: PRENATAL VITAMINS W/ FOLIC ACID TABLET (FP) PO SCH (10:24)
[2023-07-25] MEDS: SIMETHICONE 80 MG TAB.CHEW (FP) PO PRN (10:25)
[2023-07-25] MEDS: guaiFENesin 600 MG TABLET.ER (FP) PO SCH ×2 (10:25→21:23)
[2023-07-25] MEDS: NICOTINE 21 MG/24 HOURS TOPICAL PATCH TD SCH (10:25)
[2023-07-25] MEDS: LIDOCAINE 5% TOPICAL PATCH TP SCH (10:25)
[2023-07-25] MEDS: METHOCARBAMOL 500 MG TABLET PO PRN (10:25)
[2023-07-25] MEDS: ACETAMINOPHEN 325 MG TABLET (FP) PO PRN (10:26)
[2023-07-25] MEDS: POLYETHYLENE GLYCOL (HEALTHYLAX) 3350 17 GM PACKET PO PRN (10:29)
[2023-07-25] MEDS: LIDOCAINE PATCH REMOVAL MC SCH (21:23)
[2023-07-25] MEDS: THIAMINE HCL 100 MG TABLET (FP) PO SCH (21:25)
[2023-07-25] MEDS: QUEtiapine FUMARATE 100 MG TABLET (FP) PO SCH (21:25)
[2023-07-25] MEDS: IBUPROFEN 400 MG TABLET (FP) PO PRN (22:39)
[2023-07-26] MEDS: hydrOXYzine PAMOATE 50 MG CAPSULE (FP) PO PRN ×3 (06:54→21:11)
[2023-07-26] MEDS: methaDONE 80 MG, methaDONE 20 MG PO SCH (06:54)
[2023-07-26] MEDS: POLYETHYLENE GLYCOL (HEALTHYLAX) 3350 17 GM PACKET PO PRN (10:17)
[2023-07-26] MEDS: METHOCARBAMOL 500 MG TABLET PO PRN ×2 (10:17→21:09)
[2023-07-26] MEDS: IBUPROFEN 600 MG TABLET (FP) PO PRN (10:17)
[2023-07-26] MEDS: NICOTINE 21 MG/24 HOURS TOPICAL PATCH TD SCH (10:18)
[2023-07-26] MEDS: LIDOCAINE 5% TOPICAL PATCH TP SCH (10:18)
[2023-07-26] MEDS: PRENATAL VITAMINS W/ FOLIC ACID TABLET (FP) PO SCH (10:18)
[2023-07-26] MEDS: guaiFENesin 600 MG TABLET.ER (FP) PO SCH (10:18)
[2023-07-26] MEDS: SIMETHICONE 80 MG TAB.CHEW (FP) PO PRN ×2 (13:54→21:09)
[2023-07-26] MEDS: THIAMINE HCL 100 MG TABLET (FP) PO SCH (21:09)
[2023-07-26] MEDS: LIDOCAINE PATCH REMOVAL MC SCH (21:09)
[2023-07-26] MEDS: QUEtiapine FUMARATE 100 MG TABLET (FP) PO SCH (21:09)
[2023-07-27] MEDS: hydrOXYzine PAMOATE 50 MG CAPSULE (FP) PO PRN ×3 (06:53→21:48)
[2023-07-27] MEDS: methaDONE 80 MG, methaDONE 20 MG PO SCH (06:53)
[2023-07-27] MEDS: IBUPROFEN 600 MG TABLET (FP) PO PRN ×2 (06:54→21:49)
[2023-07-27] MEDS: NICOTINE 21 MG/24 HOURS TOPICAL PATCH TD SCH (10:04)
[2023-07-27] MEDS: METHOCARBAMOL 500 MG TABLET PO PRN ×2 (10:04→21:48)
[2023-07-27] MEDS: PRENATAL VITAMINS W/ FOLIC ACID TABLET (FP) PO SCH (10:04)
[2023-07-27] MEDS: POLYETHYLENE GLYCOL (HEALTHYLAX) 3350 17 GM PACKET PO PRN (10:05)
[2023-07-27] MEDS: LIDOCAINE 5% TOPICAL PATCH TP SCH (10:07)
[2023-07-27] MEDS: QUEtiapine FUMARATE 100 MG TABLET (FP) PO SCH (21:48)
[2023-07-27] MEDS: SIMETHICONE 80 MG TAB.CHEW (FP) PO PRN (21:48)
[2023-07-27] MEDS: THIAMINE HCL 100 MG TABLET (FP) PO SCH (21:48)
[2023-07-27] MEDS: LIDOCAINE PATCH REMOVAL MC SCH (21:50)
[2023-07-28] MEDS: methaDONE 80 MG, methaDONE 20 MG PO SCH (06:55)
[2023-07-28] MEDS: hydrOXYzine PAMOATE 50 MG CAPSULE (FP) PO PRN ×3 (06:55→21:28)
[2023-07-28] MEDS: IBUPROFEN 400 MG TABLET (FP) PO PRN ×2 (06:56→21:28)
[2023-07-28] MEDS: COLLOIDAL OATMEAL 1 BAR EACH TP PRN (08:31)
[2023-07-28] MEDS: PRENATAL VITAMINS W/ FOLIC ACID TABLET (FP) PO SCH (10:11)
[2023-07-28] MEDS: NICOTINE 21 MG/24 HOURS TOPICAL PATCH TD SCH (10:12)
[2023-07-28] MEDS: LIDOCAINE 4% PATCH TP SCH (10:13)
[2023-07-28] MEDS: METHOCARBAMOL 500 MG TABLET PO PRN (20:28)
[2023-07-28] MEDS: LIDOCAINE PATCH REMOVAL MC SCH (21:26)
[2023-07-28] MEDS: SIMETHICONE 80 MG TAB.CHEW (FP) PO PRN (21:27)
[2023-07-28] MEDS: QUEtiapine FUMARATE 100 MG TABLET (FP) PO SCH (21:27)
[2023-07-28] MEDS: THIAMINE HCL 100 MG TABLET (FP) PO SCH (21:28)
[2023-07-29] MEDS: hydrOXYzine PAMOATE 50 MG CAPSULE (FP) PO PRN ×3 (06:45→21:07)
[2023-07-29] MEDS: IBUPROFEN 600 MG TABLET (FP) PO PRN (06:45)
[2023-07-29] MEDS: methaDONE 80 MG, methaDONE 20 MG PO SCH (06:46)
[2023-07-29 07:31] VITALS: RESP 18
[2023-07-29] MEDS: PRENATAL VITAMINS W/ FOLIC ACID TABLET (FP) PO SCH (10:40)
[2023-07-29] MEDS: NICOTINE 21 MG/24 HOURS TOPICAL PATCH TD SCH (10:41)
[2023-07-29] MEDS: METHOCARBAMOL 500 MG TABLET PO PRN ×2 (10:41→21:07)
[2023-07-29] MEDS: SIMETHICONE 80 MG TAB.CHEW (FP) PO PRN ×2 (10:41→14:50)
[2023-07-29] MEDS: POLYETHYLENE GLYCOL (HEALTHYLAX) 3350 17 GM PACKET PO PRN (10:41)
[2023-07-29] MEDS: LIDOCAINE 4% PATCH TP SCH (10:41)
[2023-07-29] MEDS: LIDOCAINE PATCH REMOVAL MC SCH (21:05)
[2023-07-29] MEDS: QUEtiapine FUMARATE 100 MG TABLET (FP) PO SCH (21:07)
[2023-07-29] MEDS: THIAMINE HCL 100 MG TABLET (FP) PO SCH (21:07)
[2023-07-30] MEDS: methaDONE 80 MG, methaDONE 20 MG PO SCH (06:35)
[2023-07-30] MEDS: NICOTINE 21 MG/24 HOURS TOPICAL PATCH TD SCH (10:11)
[2023-07-30] MEDS: LIDOCAINE 4% PATCH TP SCH (10:11)
[2023-07-30] MEDS: POLYETHYLENE GLYCOL (HEALTHYLAX) 3350 17 GM PACKET PO PRN (10:11)
[2023-07-30] MEDS: hydrOXYzine PAMOATE 50 MG CAPSULE (FP) PO PRN ×2 (10:11→17:51)
[2023-07-30] MEDS: PRENATAL VITAMINS W/ FOLIC ACID TABLET (FP) PO SCH (10:11)
[2023-07-30] MEDS: METHOCARBAMOL 500 MG TABLET PO PRN ×2 (10:11→21:53)
[2023-07-30] MEDS: THIAMINE HCL 100 MG TABLET (FP) PO SCH (21:49)
[2023-07-30] MEDS: SIMETHICONE 80 MG TAB.CHEW (FP) PO PRN (21:49)
[2023-07-30] MEDS: QUEtiapine FUMARATE 100 MG TABLET (FP) PO SCH (21:50)
[2023-07-30] MEDS: LIDOCAINE PATCH REMOVAL MC SCH (21:50)
[2023-07-31] MEDS: hydrOXYzine PAMOATE 50 MG CAPSULE (FP) PO PRN (06:14)
[2023-07-31] MEDS: IBUPROFEN 600 MG TABLET (FP) PO PRN (06:14)
[2023-07-31] MEDS: methaDONE 80 MG, methaDONE 20 MG PO SCH (06:14)
[2023-07-31 07:31] VITALS: BP 112/75; PULSE 72; TEMP 97.3
[2023-07-31] MEDS: LIDOCAINE 4% PATCH TP SCH (09:32)
[2023-07-31] MEDS: PRENATAL VITAMINS W/ FOLIC ACID TABLET (FP) PO SCH (09:32)
[2023-07-31] MEDS: NICOTINE 21 MG/24 HOURS TOPICAL PATCH TD SCH (09:32)
[2023-07-31] MEDS: POLYETHYLENE GLYCOL (HEALTHYLAX) 3350 17 GM PACKET PO PRN (09:35)
== END 2023-07-31 09:15 | disposition other institution (70) | DRG 772 ==
LOC: YASAS 08:51 → Y5N 14:27
PROVIDERS: ADMIT Allergy & Immunology; ATTEND Psychiatry & Neurology Pain Medicine
PROC: HZ42ZZZ Group Counseling for Substance Abuse Treatment, Cognitive-Behavioral (ICD-10-PCS; principal; 2023-07-04)
DX: F11.20 Opioid dependence, uncomplicated (principal); F14.20 Cocaine dependence, uncomplicated; F12.20 Cannabis dependence, uncomplicated; F17.210 Nicotine dependence, cigarettes, uncomplicated; F19.282 Other psychoactive substance dependence with psychoactive substance-induced sleep disorder; F32.A Depression, unspecified; F41.9 Anxiety disorder, unspecified; B86 Scabies; L21.0 Seborrhea capitis; Z28.310 Unvaccinated for COVID-19; Z28.9 Immunization not carried out for unspecified reason; Z59.02 Unsheltered homelessness; Z56.0 Unemployment, unspecified
CPT/HCPCS: 36415; 80053; 81003; 81025; 85027; 86780; 87635; 87811